=== PATIENT | female | born 1945 | race Caucasian/White ===

== ENCOUNTER 2017-11-29 09:15 | Observation (INO) | payer MEDICARE, BC ==
[2017-11-29] MEDS ORDERED: Aspirin 81 MG Tab.Chew PO ONE (09:20)
[2017-11-29] MEDS ORDERED: Pantoprazole 40 MG Vial IVPUSH ONE (09:37)
[2017-11-29] MEDS ORDERED: Ondansetron 4 MG/2 ML SDV IVPUSH ONE (09:37)
[2017-11-29] MEDS: Sodium Chloride 0.9% 10 ML Syringe FLUSH PRN ×2 (10:28→22:18)
[2017-11-29] MEDS ORDERED: Albuterol/Ipratropium 3.0-0.5 MG/3 ML Neb Soln NEB ONE (10:44)
[2017-11-29] MEDS ORDERED: rOPINIRole 2 MG Tab PO ONE (11:20)
[2017-11-29] MEDS ORDERED: Iopamidol 755 Mg/ML 100 ML Bottle IV ONE (11:32)
[2017-11-29] MEDS ORDERED: rOPINIRole 0.5 MG Tab PO ONE ×2 (11:45→23:45)
--- NOTE | 2017-11-29 12:42 | EDM.PDOC ---
ED HPI GENERAL MEDICAL PROBLEM - General Chief Complaint: Abdominal Pain Stated Complaint: CHEST PAIN Time Seen by Provider: 11/29/17 09:36 Source of Information: Reports: Patient, Family History Limitations: Reports: No Limitations - History of Present Illness INITIAL COMMENTS - FREE TEXT/NARRATIVE: 72 y.o.w.f with H/O afib, RLS and parkinson disease, came to the ed because of mid upper abd/mid lower ant. chest wall c/p. pt c/o nausea as well, last food intake was this am, her initial pulse was in the low 91s per pulse ox on 2 liters. No trauma, no Fever and chills. Pt is a poor historian. BP 131/71 pulse 103 Temp 37.1 Onset: Today Onset Date: 11/29/17 Onset Time: 05:00 Duration: Hour(s):, Intermittent Location: Reports: Abdomen (epigastric pain) Quality: Reports: Ache, Burning, Dull Severity: Mild Improves with: Reports: None Worsens with: Reports: None Context: Reports: Other (woke up this am with epigatric pain) Associated Symptoms: Reports: Shortness of Breath Epigastric Pain Score (Numeric/FACES): 1 - Related Data Allergies Allergy/AdvReac Type Severity Reaction Status Date / Time No Known Allergies Allergy Verified 11/29/17 09:34 Home Meds: Home Meds Diazepam 10 mg PO BEDTIME PRN 03/19/14 [History] Furosemide 80 mg PO BID 03/19/14 [History] Nitroglycerin [Nitrostat] 0.4 mg SL Q5M PRN 03/19/14 [History] Trimethoprim 100 mg PO DAILY 03/19/14 [History] metFORMIN [Glucophage] 1,000 mg PO BID 03/19/14 [History] Carbidopa/Levodopa [Carbidopa-Levo ER 50-200] 1 tab PO BEDTIME #30 tab.er [Rx] Calcium Citrate/Vitamin D3 [Calcium Citrate with D Tablet] 1 tab PO DAILY [History] Digoxin 0.25 mg PO MOWEFR 11/29/17 [History] Digoxin 125 mcg PO SUTUTHSA 11/29/17 [History] Ferrous Sulfate 325 mg PO WITHBREAKFAST 11/29/17 [History] Gabapentin [Neurontin] 300 mg PO TID PRN 11/29/17 [History] Insulin Glargine,Hum.Rec.Anlog [Nida Rangel] 46 units SQ BEDTIME 11/29/17 [ History] Sertraline HCl [Zoloft] 100 mg PO DAILY 11/29/17 [History] Warfarin [Coumadin] 5 mg PO DAILY 11/29/17 [History] atorvaSTATin [Lipitor] 20 mg PO BEDTIME 11/29/17 [History] rOPINIRole [Requip] 0.5 mg PO QID 11/29/17 [History] Past Medical History Cardiovascular History: Reports: Afib, High Cholesterol Respiratory History: Reports: None 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: Musculoskeletal History: Reports: Arthritis Psychiatric History: Reports: Depression Endocrine/Metabolic History: Reports: Diabetes, Type II - Past Surgical History GI Surgical History: Reports: Appendectomy, Cholecystectomy Musculoskeletal Surgical History: Reports: Knee Replacement, Shoulder Replacement Social & Family History - Tobacco Use Smoking Status *Q: Never Smoker Second Hand Smoke Exposure: No - Caffeine Use Caffeine Use: Reports: Coffee, Soda - Alcohol Use Days Per Week of Alcohol Use: 1 Number of Drinks Per Day: 0 Total Drinks Per Week: 0 - Recreational Drug Use Recreational Drug Use: No - Living Situation & Occupation Living situation: Reports: ED ROS GENERAL - Review of Systems Review Of Systems: See Below Constitutional: Reports: No Symptoms HEENT: Reports: No Symptoms Respiratory: Reports: Shortness of Breath Cardiovascular: Reports: Chest Pain Endocrine: Reports: No Symptoms GI/Abdominal: Reports: Abdominal Pain (epigastric) : Reports: No Symptoms Musculoskeletal: Reports: No Symptoms Skin: Reports: No Symptoms Neurological: Reports: No Symptoms Psychiatric: Reports: No Symptoms Hematologic/Lymphatic: Reports: No Symptoms Immunologic: Reports: No Symptoms ED EXAM, GI/ABD - Physical Exam Exam: See Below Exam Limited By: Respiratory Distress General Appearance: Alert, WD/WN, Obese Eyes: Bilateral: Normal Appearance Ears: Normal External Exam Nose: Normal Inspection Throat/Mouth: Normal Inspection, Normal Lips Head: Atraumatic, Normocephalic Neck: Normal Inspection, Supple, Non-Tender Respiratory/Chest: Respiratory Distress, Crackles, Wheezing, Prolonged Expiration Cardiovascular: Normal Peripheral Pulses, Irregularly Irregular GI/Abdominal Exam: Normal Bowel Sounds, Tender (epigastric) (Female) Exam: Deferred Rectal (Female) Exam: Deferred Back Exam: Normal Inspection, Full Range of Motion Extremities: Other (chronic leg edema) Neurological: Alert, Oriented, CN II-XII Intact, Normal Cognition, Normal Gait ( with help) Psychiatric: Normal Affect, Normal Mood Skin Exam: Warm, Dry, Intact, Normal Color, No Rash Lymphatic: No Adenopathy Course - Vital Signs Text/Narrative:: 72 y.o.w.f with H/O afib, RLS and parkinson disease, came to the ed because of mid upper abd/mid lower ant. chest wall c/p. pt c/o nausea as well, last food intake was this am, her initial pulse was in the low 91s per pulse ox on 2 liters. No trauma, no Fever and chills. Pt is a poor historian. BP 131/71 pulse 103 Temp 37.1 PE: morbid obese, WF with c/o lower ant cp amd sob. Epigastric tenderness. Labs: BNP 1414 INR 2.24 D Dimer 1048 K 3.4 Imaging: CTA Chest: Neg for PE, poss lower lob infiltrate, COPD Impression: COPD, CHF, minor infiltrate LL of lung, left pleural effusion, epigastric tenderness. A fib with NVR (on coumadine) Tx: Duoneb, Solumedrol, Zofran, Protonix Reexam: Improved 12:39 pm: Consultation: Dr. Pace, Hospitalist: Accepted the pt for admission. Plan: Admit to [facility]. Last Recorded V/S: Last Vital Signs Temp 36.8 C 11/30/17 03:22 Pulse 110 H 11/30/17 08:57 Resp 18 11/30/17 03:22 BP 139/80 11/30/17 03:22 Pulse Ox 92 L 11/30/17 07:15 - Orders/Labs/Meds Orders: Active Orders 24 hr Category Date Time Status Patient Status [ADT] Routine ADT 11/29/17 12:43 Active Intake and Output [RC] Q4H Care 11/29/17 12:46 Active Oxygen Therapy [RC] PRN Care 11/29/17 12:43 Active RT Aerosol Therapy [RC] ASDIRECTED Care 11/29/17 10:44 Active Up With Assistance [RC] ASDIRECTED Care 11/29/17 12:43 Active Vital Signs [RC] 04,08,12,16,20,00 Care 11/29/17 12:43 Active Sodium Chloride 0.9% [Saline Flush] Med 11/29/17 10:28 Active 10 ml FLUSH ASDIRECTED PRN Saline Lock Insert [OM.PC] Routine Oth 11/29/17 10:28 Ordered Resuscitation Status Routine Resus Stat 11/29/17 12:43 Ordered EKG 12 Lead [EK] Routine Ther 11/29/17 09:20 Ordered Medication Orders Acetaminophen (Tylenol) 650 mg PO Q4H PRN PRN Reason: Pain (Mild 1-3)/fever Last Admin: 11/30/17 03:40 Dose: 650 mg Albuterol/Ipratropium (Duoneb 3.0-0.5 Mg/3 Ml) 3 ml NEB QIDRT [facility] Last Admin: 11/30/17 07:02 Dose: 3 ml Admin: 11/29/17 22:07 Dose: 3 ml Admin: 11/29/17 16:01 Dose: 3 ml Atorvastatin Calcium (Lipitor) 20 mg PO BEDTIME [facility] Last Admin: 11/29/17 22:15 Dose: 20 mg Carbidopa/Levodopa (Sinemet Cr 50-200 Mg) 1 tab PO BEDTIME SHEA Diazepam (Valium.) 10 mg PO BEDTIME [facility] Last Admin: 11/29/17 22:14 Dose: 10 mg Digoxin (Lanoxin) 250 mcg PO MOWEFR [facility] Last Admin: 11/30/17 08:57 Dose: 250 mcg Digoxin (Lanoxin) 125 mcg PO SUTUTHSA [facility] Ferrous Sulfate (Ferrous Sulfate) 325 mg PO WITHBREAKFAST [facility] Last Admin: 11/30/17 08:56 Dose: 325 mg Furosemide (Lasix) 80 mg PO BIDDIURETIC [facility] Last Admin: 11/30/17 08:58 Dose: 80 mg Admin: 11/29/17 20:08 Dose: 80 mg Lactated Ringer's (Ringers, Lactated) 1,000 mls @ 80 mls/hr IV ASDIRECTED [facility] Insulin Aspart (Novolog) 0 unit SUBCUT TIDMEALS [facility] PRN Reason: Protocol Last Admin: 11/30/17 08:31 Dose: Admin: 11/29/17 17:45 Dose: 2 units Methylprednisolone Sodium Succinate (Solu-Medrol) 62.5 mg IV Q6H [facility] Last Admin: 11/30/17 09:00 Dose: 62.5 mg Admin: 11/30/17 02:16 Dose: 62.5 mg Admin: 11/29/17 22:08 Dose: 62.5 mg Metoprolol Tartrate (Lopressor) 12.5 mg PO Q6H [facility] Nitroglycerin (Nitrostat) 0.4 mg SL Q5M PRN PRN Reason: Chest Pain Toujeo *Ptom 0 each SUBCUT BEDTIME [facility] Ondansetron HCl (Zofran) 4 mg IV Q6H PRN PRN Reason: Nausea/Vomiting Ropinirole HCl (Requip) 0.5 mg PO QID [facility] Last Admin: 11/30/17 08:57 Dose: 0.5 mg Admin: 11/29/17 23:56 Dose: Not Given Senna/Docusate Sodium (Senna Plus) 1 tab PO BID PRN PRN Reason: Constipation Sertraline HCl (Zoloft) 100 mg PO DAILY [facility] Last Admin: 11/30/17 08:58 Dose: 100 mg Sodium Chloride (Saline Flush) 10 ml FLUSH ASDIRECTED PRN PRN Reason: Keep Vein Open Last Admin: 11/30/17 02:18 Dose: 10 ml Admin: 11/29/17 22:18 Dose: 10 ml Admin: 11/29/17 10:28 Dose: 10 ml Trimethoprim (Trimethoprim) 100 mg PO DAILY [facility] Last Admin: 11/30/17 08:59 Dose: 100 mg Warfarin Sodium (Coumadin Sliding Scale) 1 each PO DAILY [facility] Warfarin Sodium (Coumadin) 5 mg PO 1600 [facility] Labs: Laboratory Tests 11/29/17 11/29/17 11/29/17 Range/Units 09:50 09:50 09:50 WBC 7.4 (4.5-12.0) X10-3/uL RBC 4.23 (3.23-5.20) x10(6)uL Hgb 12.4 (11.5-15.5) g/dL Hct 37.0 (30.0-51.3) % MCV 87.6 (80-96) fL MCH 29.3 (27.7-33.6) pg MCHC 33.5 (32.2-35.4) g/dL RDW 14.9 (11.5-15.5) % Plt Count 250 (125-369) X10(3)uL MPV 8.8 (7.4-10.4) fL Neut % (Auto) 70.5 (46-82) % Lymph % (Auto) 19.6 (13-37) % Gentry % (Auto) 6.7 (4-12) % Eos % (Auto) 2 (1.0-5.0) % Baso % (Auto) 1 (0-2) % Neut # (Auto) 5.2 (1.6-8.3) # Lymph # (Auto) 1.4 (0.6-5.0) # Gentry # (Auto) 0.5 (0.0-1.3) # Eos # (Auto) 0.2 (0.0-0.8) # Baso # (Auto) 0.1 (0.0-0.2) # PT (8.7-11.1) INR (0.89-1.13) D-Dimer, Quantitative (100-400) ng/mL Sodium 141 (135-145) mmol/L Potassium 3.4 L (3.5-5.3) mmol/L Chloride 101 (100-110) mmol/L Carbon Dioxide 32 (21-32) mmol/L BUN 15 (7-18) mg/dL Creatinine 0.9 (0.55-1.02) mg/dL Est Cr Clr Drug Dosing 40.58 mL/min Estimated GFR (MDRD) > 60 (>60) BUN/Creatinine Ratio 16.7 (9-20) Glucose 213 H (80-116) mg/dL Hemoglobin A1c (4.5-6.2) % Calcium 8.1 L (8.6-10.2) mg/dL Total Bilirubin (0.1-1.3) mg/dL Direct Bilirubin (0.10-0.20) mg/dL AST (5-25) IU/L ALT (12-36) U/L Alkaline Phosphatase (56-112) IU/L Troponin I < 0.017 L (<0.017-0.056) ng/mL NT-Pro-B Natriuret Pep (<=125) pg/mL Total Protein (6.0-8.0) g/dL Albumin (3.2-4.6) g/dL Amylase (25-115) U/L 11/29/17 11/29/17 11/29/17 Range/Units 09:50 09:50 09:50 WBC (4.5-12.0) X10-3/uL RBC (3.23-5.20) x10(6)uL Hgb (11.5-15.5) g/dL Hct (30.0-51.3) % MCV (80-96) fL MCH (27.7-33.6) pg MCHC (32.2-35.4) g/dL RDW (11.5-15.5) % Plt Count (125-369) X10(3)uL MPV (7.4-10.4) fL Neut % (Auto) (46-82) % Lymph % (Auto) (13-37) % Gentry % (Auto) (4-12) % Eos % (Auto) (1.0-5.0) % Baso % (Auto) (0-2) % Neut # (Auto) (1.6-8.3) # Lymph # (Auto) (0.6-5.0) # Gentry # (Auto) (0.0-1.3) # Eos # (Auto) (0.0-0.8) # Baso # (Auto) (0.0-0.2) # PT 21.6 H (8.7-11.1) INR 2.11 H (0.89-1.13) D-Dimer, Quantitative 1050 H (100-400) ng/mL Sodium (135-145) mmol/L Potassium (3.5-5.3) mmol/L Chloride (100-110) mmol/L Carbon Dioxide (21-32) mmol/L BUN (7-18) mg/dL Creatinine (0.55-1.02) mg/dL Est Cr Clr Drug Dosing mL/min Estimated GFR (MDRD) (>60) BUN/Creatinine Ratio (9-20) Glucose (80-116) mg/dL Hemoglobin A1c (4.5-6.2) % Calcium (8.6-10.2) mg/dL Total Bilirubin 2.7 H (0.1-1.3) mg/dL Direct Bilirubin 0.47 H (0.10-0.20) mg/dL AST 49 H (5-25) IU/L ALT 24 (12-36) U/L Alkaline Phosphatase 121 H (56-112) IU/L Troponin I (<0.017-0.056) ng/mL NT-Pro-B Natriuret Pep (<=125) pg/mL Total Protein 6.5 (6.0-8.0) g/dL Albumin 3.2 (3.2-4.6) g/dL Amylase 42 (25-115) U/L 11/29/17 11/29/17 Range/Units 09:50 09:50 WBC (4.5-12.0) X10-3/uL RBC (3.23-5.20) x10(6)uL Hgb (11.5-15.5) g/dL Hct (30.0-51.3) % MCV (80-96) fL MCH (27.7-33.6) pg MCHC (32.2-35.4) g/dL RDW (11.5-15.5) % Plt Count (125-369) X10(3)uL MPV (7.4-10.4) fL Neut % (Auto) (46-82) % Lymph % (Auto) (13-37) % Gentry % (Auto) (4-12) % Eos % (Auto) (1.0-5.0) % Baso % (Auto) (0-2) % Neut # (Auto) (1.6-8.3) # Lymph # (Auto) (0.6-5.0) # Gentry # (Auto) (0.0-1.3) # Eos # (Auto) (0.0-0.8) # Baso # (Auto) (0.0-0.2) # PT (8.7-11.1) INR (0.89-1.13) D-Dimer, Quantitative (100-400) ng/mL Sodium (135-145) mmol/L Potassium (3.5-5.3) mmol/L Chloride (100-110) mmol/L Carbon Dioxide (21-32) mmol/L BUN (7-18) mg/dL Creatinine (0.55-1.02) mg/dL Est Cr Clr Drug Dosing mL/min Estimated GFR (MDRD) (>60) BUN/Creatinine Ratio (9-20) Glucose (80-116) mg/dL Hemoglobin A1c 7.7 H (4.5-6.2) % Calcium (8.6-10.2) mg/dL Total Bilirubin (0.1-1.3) mg/dL Direct Bilirubin (0.10-0.20) mg/dL AST (5-25) IU/L ALT (12-36) U/L Alkaline Phosphatase (56-112) IU/L Troponin I (<0.017-0.056) ng/mL NT-Pro-B Natriuret Pep 1414 H* (<=125) pg/mL Total Protein (6.0-8.0) g/dL Albumin (3.2-4.6) g/dL Amylase (25-115) U/L Meds: Medications Generic Name Dose Route Start Last Admin Trade Name Freq PRN Reason Stop Dose Admin Acetaminophen 650 mg 11/29/17 13:46 11/30/17 03:40 Tylenol PO 650 mg Q4H PRN Administration Pain (Mild 1-3)/fever Albuterol/Ipratropium 3 ml 11/29/17 16:00 11/30/17 07:02 Duoneb 3.0-0.5 Mg/3 Ml NEB 3 ml QIDRT SHEA Administration Atorvastatin Calcium 20 mg 11/29/17 21:00 11/29/17 22:15 Lipitor PO 20 mg BEDTIME SHEA Administration Carbidopa/Levodopa 1 tab 11/30/17 21:00 Sinemet Cr 50-200 Mg PO BEDTIME [facility] Diazepam 10 mg 11/29/17 21:00 11/29/17 22:14 Valium. PO 10 mg BEDTIME SHE[facility] Administration Digoxin 250 mcg 11/30/17 09:00 11/30/17 08:57 Lanoxin PO 250 mcg MOWEFR SHEA Administration Digoxin 125 mcg 12/01/17 09:00 Lanoxin PO SUTUTHSA [facility] Ferrous Sulfate 325 mg 11/30/17 08:00 11/30/17 08:56 Ferrous Sulfate PO 325 mg WITHBREAKFAST [facility] Administration Furosemide 80 mg 11/29/17 19:30 11/30/17 08:58 Lasix PO 80 mg BIDDIURETIC [facility] Administration Lactated Ringer's 1,000 mls @ 80 mls/hr 11/29/17 14:00 Ringers, Lactated IV ASDIRECTED [facility] Insulin Aspart 0 unit 11/29/17 18:00 11/30/17 08:31 Novolog SUBCUT Not Given TIDMEALS [facility] Protocol Methylprednisolone Sodium Succinate 62.5 mg 11/29/17 21:00 11/30/17 09:00 Solu-Medrol IV 62.5 mg Q6H [facility] Administration Metoprolol Tartrate 12.5 mg 11/30/17 09:15 Lopressor PO Q6H [facility] Nitroglycerin 0.4 mg 11/29/17 13:46 Nitrostat SL Q5M PRN Chest Pain Toujeo *Ptom 0 each 11/29/17 21:00 SUBCUT BEDTIME [facility] Ondansetron HCl 4 mg 11/29/17 13:46 Zofran IV Q6H PRN Nausea/Vomiting Ropinirole HCl 0.5 mg 11/29/17 23:20 11/30/17 08:57 Requip PO 0.5 mg QID [facility] Administration Senna/Docusate Sodium 1 tab 11/29/17 13:46 Senna Plus PO BID PRN Constipation Sertraline HCl 100 mg 11/30/17 09:00 11/30/17 08:58 Zoloft PO 100 mg DAILY [facility] Administration Sodium Chloride 10 ml 11/29/17 10:28 11/30/17 02:18 Saline Flush FLUSH 10 ml ASDIRECTED PRN Administration Keep Vein Open Trimethoprim 100 mg 11/30/17 09:00 11/30/17 08:59 Trimethoprim PO 100 mg DAILY [facility] Administration Warfarin Sodium 1 each 11/30/17 09:00 Coumadin Sliding Scale PO DAILY [facility] Warfarin Sodium 5 mg 11/29/17 16:00 Coumadin PO 1600 [facility] Discontinued Medications Generic Name Dose Route Start Last Admin Trade Name Freq PRN Reason Stop Dose Admin Albuterol/Ipratropium 3 ml 11/29/17 10:44 11/29/17 10:51 Duoneb 3.0-0.5 Mg/3 Ml NEB 11/29/17 10:45 3 ml ONETIME ONE Administration Aspirin 324 mg 11/29/17 09:20 11/29/17 09:33 Aspirin PO 11/29/17 09:21 324 mg ONETIME ONE Administration Carbidopa/Levodopa 1 tab 11/29/17 21:00 11/30/17 00:25 Sinemet Cr 50-200 Mg PO Not Given BEDTIME [facility] Carbidopa/Levodopa 1 tab 11/29/17 17:00 Sinemet 25-250 Mg PO QID SHEA Carbidopa/Levodopa 2 tab 11/30/17 21:00 Sinemet 25-250 Mg PO BEDTIME SHEA Carbidopa/Levodopa 1 tab 11/29/17 22:30 11/29/17 22:23 Sinemet Cr 50-200 Mg PO 11/29/17 22:31 1 tab ONETIME ONE Administration Diazepam 5 mg 11/29/17 14:04 Valium. PO BEDTIME PRN Insomnia Furosemide mg 11/29/17 14:15 Lasix PO DAILY [facility] Gabapentin 300 mg 11/29/17 21:00 Neurontin PO TID [facility] Insulin Aspart 20 unit 11/30/17 08:07 11/30/17 08:30 Novolog SUBCUT 11/30/17 08:08 20 units NOW STA Administration Iopamidol 100 ml 11/29/17 11:32 11/29/17 11:53 Isovue-370 (76%) IV 11/29/17 11:33 100 ml . DIRECTED ONE Administration Metformin HCl mg 11/29/17 17:00 Glucophage PO QID [facility] Methylprednisolone Sodium Succinate 125 mg 11/29/17 12:49 11/29/17 12:56 Solu-Medrol IVPUSH 11/29/17 12:50 125 mg ONETIME ONE Administration Non-Formulary Medication 46 units 11/29/17 21:00 Insulin Glargine,Hum.Rec.Anlog [Nida Rangel] SQ BEDTIME [facility] Ondansetron HCl 8 mg 11/29/17 09:37 11/29/17 10:24 Zofran IVPUSH 11/29/17 09:38 8 mg ONETIME ONE Administration Pantoprazole Sodium 40 mg 11/29/17 09:37 11/29/17 10:24 Protonix Iv IVPUSH 11/29/17 09:38 40 mg ONETIME ONE Administration Ropinirole HCl 0.5 mg 11/29/17 11:45 11/29/17 11:34 Requip PO 11/29/17 11:46 0.5 mg ONETIME ONE Administration Ropinirole HCl 0.5 mg 11/29/17 17:00 Requip PO QID [facility] Ropinirole HCl 0.5 mg 11/29/17 23:45 11/29/17 23:52 Requip PO 11/29/17 23:46 0.5 mg ONETIME ONE Administration Ropinirole HCl 0.5 mg 11/29/17 23:45 11/29/17 23:54 Requip PO 11/29/17 23:46 Not Given ONETIME ONE Sertraline HCl 50 mg 11/30/17 09:00 Zoloft PO DAILY [facility] Zolpidem Tartrate 5 mg 11/29/17 13:46 Ambien PO BEDTIME PRN Sleep Departure - Departure Time of Disposition: 13:00 Disposition: Refer to Observation Condition: Fair Clinical Impression: COPD (chronic obstructive pulmonary disease) Qualifiers: COPD type: COPD with acute exacerbation Qualified Code(s): J44.1 - Chronic obstructive pulmonary disease with (acute) exacerbation - Discharge Information - My Orders Last 24 Hours: My Active Orders 11/29/17 09:20 EKG 12 Lead [EK] Routine 11/29/17 10:28 Sodium Chloride 0.9% [Saline Flush] 10 ml FLUSH ASDIRECTED PRN Saline Lock Insert [OM.PC] Routine 11/29/17 10:44 RT Aerosol Therapy [RC] ASDIRECTED 11/29/17 12:43 Patient Status [ADT] Routine Oxygen Therapy [RC] PRN Up With Assistance [RC] ASDIRECTED Vital Signs [RC] 04,08,12,16,20,00 Resuscitation Status Routine 11/29/17 12:46 Intake and Output [RC] Q4H - Assessment/Plan Last 24 Hours: My Active Orders 11/29/17 09:20 EKG 12 Lead [EK] Routine 11/29/17 10:28 Sodium Chloride 0.9% [Saline Flush] 10 ml FLUSH ASDIRECTED PRN Saline Lock Insert [OM.PC] Routine 11/29/17 10:44 RT Aerosol Therapy [RC] ASDIRECTED 11/29/17 12:43 Patient Status [ADT] Routine Oxygen Therapy [RC] PRN Up With Assistance [RC] ASDIRECTED Vital Signs [RC] 04,08,12,16,20,00 Resuscitation Status Routine 11/29/17 12:46 Intake and Output [RC] Q4H
[2017-11-29] MEDS ORDERED: methylPREDNISolone Sodium Succinate 125 MG/2 ML SDV IVPUSH ONE (12:49)
--- NOTE | 2017-11-29 13:26 | CT ---
INDICATION: Short of breath, elevated D-dimer, question PE in a patient with mid chest pain. COMPUTERIZED TOMOGRAPHY ANGIOGRAPHY OF THE CHEST FOR PULMONARY ARTERIES: Spiral 1.25-mm axial sections were obtained through the chest with sagittal and coronal reconstructions utilizing 100 mL Isovue-370 at 2.5 mL per second, 2017, and compared with 03/19/2014 examination. Total Exam DLP = 959.90 mGy-cm. Very minimal atelectasis or infiltrate could be present at the middle lobe and left lower lobe with a small to moderate sized right pleural effusion noted. No gross consolidating pneumonia is seen in the right lower lobe, however, there are some patchy infiltrates, which may represent minimal pneumonia with pleuritis. This should be correlated clinically. The heart is enlarged. The possibility of minimal or early CHF is difficult to exclude. Some minimal pericardial thickening is noted, which could represent pericardial fluid and/or pericarditis of mild degree. There is suggestion of lobar emphysematous changes additionally. No gross abnormality of the upper abdomen included on the study was noted. The gallbladder is absent, with clips at the cystic duct, compatible with cholecystectomy. No evidence of pulmonary emboli could be identified. IMPRESSION: 1. No evidence of PE. 2. 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 3. ASHD with cardiomegaly. Cannot exclude a minimal or early CHF. 4. Minimal patchy pneumonia and pleuritis right lower lobe. Question minimal fibrosis or very minimal patchy pneumonia in the middle lobe and left lower lobe. 5. Post cholecystectomy. Report was called to Dr. Billy at 1235 hours, 11/29/2017. [facility]
[2017-11-29] MEDS ORDERED: Ondansetron 4 MG/2 ML SDV IV PRN (13:46)
[2017-11-29] MEDS ORDERED: Nitroglycerin 0.4 MG Tab.SL *PTOM SL PRN (13:46)
[2017-11-29] MEDS ORDERED: Acetaminophen 325 MG Tab PO PRN (13:46)
[2017-11-29] MEDS ORDERED: Zolpidem 5 MG Tab PO PRN (13:46)
[2017-11-29] MEDS ORDERED: Lactated Ringers 1,000 ML IV SCH (14:00)
[2017-11-29] MEDS ORDERED: Diazepam 5 MG Tab PO PRN (14:04)
--- NOTE | 2017-11-29 14:12 | PCM.HP ---
H&P History of Present Illness - General Date of Service: 11/29/17 Admit Problem/Dx: Admission Diagnosis/Problem Admission Diagnosis/Problem CHF, Congestive heart failure - History of Present Illness Initial Comments - Free Text/Narative: 72 -year-old female with afib, CHF, COPD and obstructive sleep apnea. came to the ed because of sudden onset epigastric, upper abd, and mid lower ant. chest wall pain. Described more as sharp with cough or inspiration. Denied pressure or feeling of impending doom, denied palpitations or syncope. Denied having had this in the past. She has not tried anything to relieve it. She had no trauma, known ill contacts or travel in the last 30 days. No hospitalizations in the last 90 days.. She has no headache neck shoulder or jaw pain. She is nondiaphoretic has not noted any fevers or chills, admitted to nausea without vomiting. last food intake was this am. Pt is a poor historian however by her daughter dose come in as being interviewed to bring in her CPAP. BP 131/71 pulse 103 Temp 37.1. Sats in the ER load in 90s. She did admit to some wheezing she's noted over the last few days. Has asthma. She has multiple comorbidities and is on numerous medications some of which have been changed in the last week per her PCP. Chronic anticoagulation with warfarin following INR clinic at [facility]. Epigastric Pain Score (Numeric/FACES): 1 - Related Data Allergies/Adverse Reactions: Allergies Allergy/AdvReac Type Severity Reaction Status Date / Time No Known Allergies Allergy Verified 11/29/17 09:34 Home Medications: Home Meds Diazepam 10 mg PO BEDTIME PRN 03/19/14 [History] Furosemide 80 mg PO BID 03/19/14 [History] Nitroglycerin [Nitrostat] 0.4 mg SL Q5M PRN 03/19/14 [History] Trimethoprim 100 mg PO DAILY 03/19/14 [History] metFORMIN [Glucophage] 1,000 mg PO BID 03/19/14 [History] Carbidopa/Levodopa [Carbidopa-Levo ER 50-200] 1 tab PO BEDTIME #30 tab.er [Rx] Calcium Citrate/Vitamin D3 [Calcium Citrate with D Tablet] 1 tab PO DAILY [History] Digoxin 0.25 mg PO MOWEFR 11/29/17 [History] Digoxin 125 mcg PO SUTUTHSA 11/29/17 [History] Ferrous Sulfate 325 mg PO WITHBREAKFAST 11/29/17 [History] Gabapentin [Neurontin] 300 mg PO TID PRN 11/29/17 [History] Insulin Glargine,Hum.Rec.Anlog [Touzaneo Solostar] 46 units SQ BEDTIME 11/29/17 [ History] Sertraline HCl [Zoloft] 100 mg PO DAILY 11/29/17 [History] Warfarin [Coumadin] 5 mg PO DAILY 11/29/17 [History] atorvaSTATin [Lipitor] 20 mg PO BEDTIME 11/29/17 [History] rOPINIRole [Requip] 0.5 mg PO QID 11/29/17 [History] Past Medical History Cardiovascular History: Reports: Afib, High Cholesterol Respiratory History: Reports: None [employer] History: Reports: Musculoskeletal History: Reports: Arthritis Neurological History: Reports: Concussion Psychiatric History: Reports: Depression Endocrine/Metabolic History: Reports: Diabetes, Type II - Infectious Disease History Infectious Disease History: Reports: Chicken Pox, Measles, Mumps - Past Surgical History GI Surgical History: Reports: Appendectomy, Cholecystectomy Musculoskeletal Surgical History: Reports: Knee Replacement, Shoulder Replacement Social & Family History - Family History Family Medical History: Noncontributory - Tobacco Use Smoking Status *Q: Never Smoker Second Hand Smoke Exposure: No - Caffeine Use Caffeine Use: Reports: Coffee, Soda Other Caffeine Use: 1-2 per day - Alcohol Use Days Per Week of Alcohol Use: 1 Number of Drinks Per Day: 0 Total Drinks Per Week: 0 - Recreational Drug Use Recreational Drug Use: No - Living Situation & Occupation Living situation: Reports: H&P Review of Systems - Review of Systems: Review Of Systems: ROS reveals no pertinent complaints other than HPI. Exam - Exam Exam: See Below - Vital Signs Vital Signs: Last Vital Signs Temp 97.6 F 11/29/17 13:15 Pulse 129 H 11/29/17 13:15 Resp 16 11/29/17 13:15 BP 121/81 11/29/17 13:15 Pulse Ox 91 L RA 11/29/17 13:15 Weight: 114.078 kg - Exam Quality Assessment: Supplemental Oxygen General: Alert, Oriented, Cooperative, Mild Distress HEENT: Mucosa Moist & [place] Neck: Supple, Trachea Midline, JVD Lungs: Decreased Breath Sounds (Bilateral), Rales (Fine bilateral lower lobe), Wheezing (Anterior bilateral expiratory mild) Cardiovascular: Irregular Rhythm, Tachycardia, Systolic Murmur GI/Abdominal Exam: Normal Bowel Sounds, Soft, Non-Tender Extremities: Other (3+ pitting edema up to just above the knee. Symmetric. No erythema warmth or tenderness. Capillary refill 3 seconds. Extremities cool.) Skin: No: Rash, Petechia, Ecchymosis Neurological: Strength Equal Bilateral, Sensation Intact. No: Focal Deficit Psychiatric: Normal Affect, Anxious, Depressed - Patient Data Lab Results Last 24 hrs: Laboratory Tests 11/29/17 11/29/17 11/29/17 Range/Units 09:50 09:50 09:50 WBC 7.4 (4.5-12.0) X10-3/uL RBC 4.23 (3.23-5.20) x10(6)uL Hgb 12.4 (11.5-15.5) g/dL Hct 37.0 (30.0-51.3) % MCV 87.6 (80-96) fL MCH 29.3 (27.7-33.6) pg MCHC 33.5 (32.2-35.4) g/dL RDW 14.9 (11.5-15.5) % Plt Count 250 (125-369) X10(3)uL MPV 8.8 (7.4-10.4) fL Neut % (Auto) 70.5 (46-82) % Lymph % (Auto) 19.6 (13-37) % [place] % (Auto) 6.7 (4-12) % Eos % (Auto) 2 (1.0-5.0) % Baso % (Auto) 1 (0-2) % Neut # (Auto) 5.2 (1.6-8.3) # Lymph # (Auto) 1.4 (0.6-5.0) # [place] # (Auto) 0.5 (0.0-1.3) # Eos # (Auto) 0.2 (0.0-0.8) # Baso # (Auto) 0.1 (0.0-0.2) # Add Manual Diff Neutrophils % (Manual) (46-82) % Lymphocytes % (Manual) (13-37) % Monocytes % (Manual) (4-12) % PT (8.7-11.1) INR (0.89-1.13) D-Dimer, Quantitative (100-400) ng/mL Sodium 141 (135-145) mmol/L Potassium 3.4 L (3.5-5.3) mmol/L Chloride 101 (100-110) mmol/L Carbon Dioxide 32 (21-32) mmol/L BUN 15 (7-18) mg/dL Creatinine 0.9 (0.55-1.02) mg/dL Est Cr Clr Drug Dosing 40.58 mL/min Estimated GFR (MDRD) > 60 (>60) BUN/Creatinine Ratio 16.7 (9-20) Glucose 213 H (80-116) mg/dL POC Glucose (80-116) mg/dL Hemoglobin A1c (4.5-6.2) % Calcium 8.1 L (8.6-10.2) mg/dL Total Bilirubin (0.1-1.3) mg/dL Direct Bilirubin (0.10-0.20) mg/dL AST (5-25) IU/L ALT (12-36) U/L Alkaline Phosphatase (56-112) IU/L Troponin I < 0.017 L (<0.017-0.056) ng/mL NT-Pro-B Natriuret Pep (<=125) pg/mL Total Protein (6.0-8.0) g/dL Albumin (3.2-4.6) g/dL Amylase (25-115) U/L Digoxin (0.9-2.0) ng/mL 11/29/17 11/29/17 11/29/17 Range/Units 09:50 09:50 09:50 WBC (4.5-12.0) X10-3/uL RBC (3.23-5.20) x10(6)uL Hgb (11.5-15.5) g/dL Hct (30.0-51.3) % MCV (80-96) fL MCH (27.7-33.6) pg MCHC (32.2-35.4) g/dL RDW (11.5-15.5) % Plt Count (125-369) X10(3)uL MPV (7.4-10.4) fL Neut % (Auto) (46-82) % Lymph % (Auto) (13-37) % [place] % (Auto) (4-12) % Eos % (Auto) (1.0-5.0) % Baso % (Auto) (0-2) % Neut # (Auto) (1.6-8.3) # Lymph # (Auto) (0.6-5.0) # [place] # (Auto) (0.0-1.3) # Eos # (Auto) (0.0-0.8) # Baso # (Auto) (0.0-0.2) # Add Manual Diff Neutrophils % (Manual) (46-82) % Lymphocytes % (Manual) (13-37) % Monocytes % (Manual) (4-12) % PT 21.6 H (8.7-11.1) INR 2.11 H (0.89-1.13) D-Dimer, Quantitative 1050 H (100-400) ng/mL Sodium (135-145) mmol/L Potassium (3.5-5.3) mmol/L Chloride (100-110) mmol/L Carbon Dioxide (21-32) mmol/L BUN (7-18) mg/dL Creatinine (0.55-1.02) mg/dL Est Cr Clr Drug Dosing mL/min Estimated GFR (MDRD) (>60) BUN/Creatinine Ratio (9-20) Glucose (80-116) mg/dL POC Glucose (80-116) mg/dL Hemoglobin A1c (4.5-6.2) % Calcium (8.6-10.2) mg/dL Total Bilirubin 2.7 H (0.1-1.3) mg/dL Direct Bilirubin 0.47 H (0.10-0.20) mg/dL AST 49 H (5-25) IU/L ALT 24 (12-36) U/L Alkaline Phosphatase 121 H (56-112) IU/L Troponin I (<0.017-0.056) ng/mL NT-Pro-B Natriuret Pep (<=125) pg/mL Total Protein 6.5 (6.0-8.0) g/dL Albumin 3.2 (3.2-4.6) g/dL Amylase 42 (25-115) U/L Digoxin (0.9-2.0) ng/mL 11/29/17 11/29/17 11/29/17 Range/Units 09:50 09:50 14:25 WBC (4.5-12.0) X10-3/uL RBC (3.23-5.20) x10(6)uL Hgb (11.5-15.5) g/dL Hct (30.0-51.3) % MCV (80-96) fL MCH (27.7-33.6) pg MCHC (32.2-35.4) g/dL RDW (11.5-15.5) % Plt Count (125-369) X10(3)uL MPV (7.4-10.4) fL Neut % (Auto) (46-82) % Lymph % (Auto) (13-37) % [place] % (Auto) (4-12) % Eos % (Auto) (1.0-5.0) % Baso % (Auto) (0-2) % Neut # (Auto) (1.6-8.3) # Lymph # (Auto) (0.6-5.0) # [place] # (Auto) (0.0-1.3) # Eos # (Auto) (0.0-0.8) # Baso # (Auto) (0.0-0.2) # Add Manual Diff Neutrophils % (Manual) (46-82) % Lymphocytes % (Manual) (13-37) % Monocytes % (Manual) (4-12) % PT (8.7-11.1) INR (0.89-1.13) D-Dimer, Quantitative (100-400) ng/mL Sodium (135-145) mmol/L Potassium (3.5-5.3) mmol/L Chloride (100-110) mmol/L Carbon Dioxide (21-32) mmol/L BUN (7-18) mg/dL Creatinine (0.55-1.02) mg/dL Est Cr Clr Drug Dosing mL/min Estimated GFR (MDRD) (>60) BUN/Creatinine Ratio (9-20) Glucose (80-116) mg/dL POC Glucose (80-116) mg/dL Hemoglobin A1c 7.7 H (4.5-6.2) % Calcium (8.6-10.2) mg/dL Total Bilirubin (0.1-1.3) mg/dL Direct Bilirubin (0.10-0.20) mg/dL AST (5-25) IU/L ALT (12-36) U/L Alkaline Phosphatase (56-112) IU/L Troponin I < 0.017 L (<0.017-0.056) ng/mL NT-Pro-B Natriuret Pep 1414 H* (<=125) pg/mL Total Protein (6.0-8.0) g/dL Albumin (3.2-4.6) g/dL Amylase (25-115) U/L Digoxin 0.7 L (0.9-2.0) ng/mL Result Diagrams: 11/30/17 06:20 11/30/17 06:20 Imaging Impressions Last 24 hrs: CT angiogram of the chest was negative for PE, no predominant focal consolidations. No large pleural effusions. *Q Meaningful Use (ADM) - VTE *Q VTE Criteria *Q: - Stroke *Q Stroke Criteria *Q: - AMI *Q AMI Criteria *Q: - Problem List (1) COPD with exacerbation SNOMED Code(s): 464421736845148 ICD Code: J44.1 - CHRONIC OBSTRUCTIVE PULMONARY DISEASE W (ACUTE) EXACERBATION Status: Acute Current Visit: Yes (2) Acute exacerbation of CHF (congestive heart failure) SNOMED Code(s): 11760428 ICD Code: I50.9 - HEART FAILURE, UNSPECIFIED Status: Acute Current Visit : Yes (3) Asthma SNOMED Code(s): 851221652 ICD Code: J45.909 - UNSPECIFIED ASTHMA, UNCOMPLICATED Status: Chronic Priority: Medium Current Visit: Yes Problem Details: (4) Palliative care patient SNOMED Code(s): 417778819 ICD Code: Z51.5 - ENCOUNTER FOR PALLIATIVE CARE Status: Acute Current Visit: Yes (5) Afib, Atrial fibrillation SNOMED Code(s): 04127964 ICD Code: I48.91 - UNSPECIFIED ATRIAL FIBRILLATION Status: Chronic Priority: High Current Visit: Yes Problem Details: (6) Diabetes mellitus type 2 in obese SNOMED Code(s): 02339246 ICD Code: E11.9 - TYPE 2 DIABETES MELLITUS WITHOUT COMPLICATIONS; E66.9 - OBESITY, UNSPECIFIED Status: Chronic Priority: High Current Visit: Yes Problem Details: (7) Diabetic autonomic neuropathy SNOMED Code(s): 57181696 ICD Code: E11.43 - TYPE 2 DIABETES W DIABETIC AUTONOMIC (POLY)NEUROPATHY Status: Chronic Priority: Low Current Visit: Yes Problem Details: continue home meds. (8) Hyperlipidemia SNOMED Code(s): 43753016 ICD Code: E78.5 - HYPERLIPIDEMIA, UNSPECIFIED Status: Chronic Priority: Medium Current Visit: No Problem Details: (9) Peripheral edema SNOMED Code(s): 785768890 ICD Code: R60.9 - EDEMA, UNSPECIFIED Status: Chronic Priority: Medium Current Visit: Yes Problem Details: (10) Restless legs SNOMED Code(s): 26325554 ICD Code: G25.81 - RESTLESS LEGS SYNDROME Status: Chronic Priority: Low Current Visit: No Problem Details: continue home meds. (11) Obstructive sleep apnea syndrome SNOMED Code(s): 05606536 ICD Code: G47.33 - OBSTRUCTIVE SLEEP APNEA (ADULT) (PEDIATRIC) Status: Chronic Priority: High Current Visit: Yes Problem Details: CPAP with and will use. (12) Arthritis SNOMED Code(s): 5246237 ICD Code: M19.90 - UNSPECIFIED OSTEOARTHRITIS, UNSPECIFIED SITE Status: Chronic Priority: Low Current Visit: No Problem Details: Problem List Initiated/Reviewed/Updated: Yes Orders Last 24hrs: Active Orders 24 hr Category Date Time Status Ambulate [RC] QID Care 11/29/17 13:46 Ordered Blood Glucose Check, Bedside [RC] QIDACANDBED Care 11/29/17 13:46 Ordered Cardiac Education [RC] Click to Edit Care 11/29/17 13:46 Ordered Communication Order [RC] ASDIRECTED Care 11/29/17 13:46 Ordered Diabetes Education [RC] Click to Edit Care 11/29/17 13:46 Ordered Height and Weight [RC] DAILY Care 11/29/17 13:46 Ordered Notify Provider Vital Signs [RC] ASDIRECTED Care 11/29/17 13:49 Ordered Notify Provider [RC] PRN Care 11/29/17 13:46 Ordered Notify Provider [RC] PRN Care 11/29/17 14:01 Ordered RT Incentive Spirometry [RC] Q4HR Care 11/29/17 13:46 Ordered BASIC METABOLIC PANEL,BMP [CHEM] AM Lab 11/30/17 05:11 Ordered CBC WITH AUTO DIFF [HEME] AM Lab 11/30/17 05:11 Ordered DIGOXIN [CHEM] Routine Lab 11/29/17 14:07 Ordered GLYCOSYLATED HEMOGLOBIN,HGBA1C [CHEM] Routine Lab 11/29/17 13:46 Ordered INR,PT,PROTHROMBIN TIME [COAG] DAILY Lab 11/30/17 06:00 Ordered INR,PT,PROTHROMBIN TIME [COAG] DAILY Lab 12/01/17 06:00 Ordered INR,PT,PROTHROMBIN TIME [COAG] DAILY Lab 12/02/17 06:00 Ordered TROPONIN I [CHEM] Q4H Lab 11/29/17 13:46 Ordered TROPONIN I [CHEM] Q4H Lab 11/29/17 17:46 Ordered Acetaminophen [Tylenol] Med 11/29/17 13:46 Ordered 650 mg PO Q4H PRN Albuterol/Ipratropium [DuoNeb 3.0-0.5 MG/3 ML] Med 11/29/17 16:00 Ordered 3 ml NEB QIDRT Carbidopa/Levodopa [Sinemet 25-250 mg] Med 11/29/17 17:00 Ordered 1 tab PO QID Carbidopa/Levodopa [Sinemet Cr 50-200 mg] Med 11/29/17 21:00 Ordered 1 tab PO BEDTIME Diazepam [Valium] Med 11/29/17 14:04 Ordered 5 mg PO BEDTIME PRN Digoxin [Lanoxin] Med 11/29/17 14:15 Ordered 125 mcg PO SUTUTHSA Digoxin [Lanoxin] Med 11/30/17 14:04 Ordered 250 mcg PO MOWEFR Docusate Sodium/Sennosides [Senna Plus] Med 11/29/17 13:46 Ordered 1 tab PO BID PRN Ferrous Sulfate Med 11/30/17 08:00 Ordered 325 mg PO WITHBREAKFAST Furosemide [Lasix] Med 11/29/17 14:15 Ordered 1 tab PO DAILY Gabapentin [Neurontin] Med 11/29/17 21:00 Ordered 300 mg PO TID Insulin Aspart [NovoLOG] Med 11/29/17 18:00 Ordered See Protocol SUBCUT TIDMEALS Insulin Glargine,Hum.Rec.Anlog [Toumarita Solaida] Med 11/29/17 21:00 Ordered 46 units SQ BEDTIME Lactated Ringers [Ringers, Lactated] 1,000 ml Med 11/29/17 14:00 Ordered IV ASDIRECTED Multivitamin [Multivitamins] Med 11/30/17 09:00 Ordered 1 each PO DAILY Nitroglycerin [Nitrostat] Med 11/29/17 13:46 Ordered 0.4 mg SL Q5M PRN Ondansetron [Zofran] Med 11/29/17 13:46 Ordered 4 mg IV Q6H PRN Sertraline [Zoloft] Med 11/30/17 09:00 Ordered 50 mg PO DAILY Trimethoprim Med 11/30/17 09:00 Ordered 1 tab PO DAILY Zolpidem [Ambien] Med 11/29/17 13:46 Stop Req 5 mg PO BEDTIME PRN atorvaSTATin [Lipitor] Med 11/29/17 21:00 Ordered 20 mg PO BEDTIME methylPREDNISolone Sod Succ [Solu-MEDROL] Med 11/29/17 21:00 Ordered 62.5 mg IV Q6H rOPINIRole [Requip] Med 11/29/17 17:00 Ordered 0.5 mg PO QID Medication Orders Acetaminophen (Tylenol) 650 mg PO Q4H PRN PRN Reason: Pain (Mild 1-3)/fever Albuterol/Ipratropium (Duoneb 3.0-0.5 Mg/3 Ml) 3 ml NEB QIDRT [facility] Atorvastatin Calcium (Lipitor) 20 mg PO BEDTIME [facility] Carbidopa/Levodopa (Sinemet Cr 50-200 Mg) 1 tab PO BEDTIME [facility] Carbidopa/Levodopa (Sinemet 25-250 Mg) 1 tab PO QID [facility] Diazepam (Valium.) 5 mg PO BEDTIME PRN PRN Reason: Insomnia Digoxin (Lanoxin) 250 mcg PO MOWEFR [facility] Digoxin (Lanoxin) 125 mcg PO SUTUTHSA [facility] Ferrous Sulfate (Ferrous Sulfate) 325 mg PO WITHBREAKFAST [facility] Furosemide (Lasix) 80 mg PO DAILY [facility] Gabapentin (Neurontin) 300 mg PO TID [facility] Lactated Ringer's (Ringers, Lactated) 1,000 mls @ 80 mls/hr IV ASDIRECTED [facility] Insulin Aspart (Novolog) 0 unit SUBCUT TIDMEALS [facility] PRN Reason: Protocol Methylprednisolone Sodium Succinate (Solu-Medrol) 62.5 mg IV Q6H [facility] Nitroglycerin (Nitrostat) 0.4 mg SL Q5M PRN PRN Reason: Chest Pain Non-Formulary Medication (Insulin Glargine,Hum.Rec.Anlog [Nida Rangel]) 20 units SQ BEDTIME [facility] Non-Formulary Medication (Multivitamin [Multivitamins]) 1 each PO DAILY [facility] Ondansetron HCl (Zofran) 4 mg IV Q6H PRN PRN Reason: Nausea/Vomiting Ropinirole HCl (Requip) 0.5 mg PO QID [facility] Senna/Docusate Sodium (Senna Plus) 1 tab PO BID PRN PRN Reason: Constipation Sertraline HCl (Zoloft) 50 mg PO DAILY [facility] Sodium Chloride (Saline Flush) 10 ml FLUSH ASDIRECTED PRN PRN Reason: Keep Vein Open Last Admin: 11/29/17 10:28 Dose: 10 ml Trimethoprim (Trimethoprim) mg PO DAILY [facility] Assessment/Plan Comment:: We'll admit for COPD exacerbation, CHF exacerbation and respiratory distress. Will get RT for DuoNeb and incentive spirometry. Methylprednisolone on board. Will need to establish an accurate medication record regarding recent changes in her warfarin dosing. States her blood sugars have been running low so we'll cut her long-acting insulin in half to see how we do and supplement with sliding scale NovoLog. With steroids this is likely to increase blood sugars and will adjust long-acting accordingly. Low sodium diet minimal fluids. [place] wraps to lower extremities. Up as tolerated. Oxygen to keep sats greater than 92 %. Follow troponins. Hold metformin secondary to recent IV contrast. Manage comorbidities and adjust medications if needed. Recently started on sertraline for depression. Will monitor affect and mood as well. She is having some mild anxiety which could either be related to underlying mood disorder versus acute respiratory distress so at this time will not adjust SSRI. She does wish to remain full code with the discussion at the bedside. She and daughter are in agreement with the above plan. Will work with pharmacy regarding medication accuracy and also with warfarin dosing.
[2017-11-29] MEDS ORDERED: Furosemide 40 MG Tab PO SCH (14:15)
[2017-11-29] MEDS ORDERED: Warfarin 5 MG Tab *PTOM PO SCH (16:00)
[2017-11-29] MEDS: Albuterol/Ipratropium 3.0-0.5 MG/3 ML Neb Soln NEB SCH ×2 (16:01→22:07)
--- NOTE | 2017-11-29 16:29 | CR ---
INDICATION: Low oxygen saturations. CHEST: An AP upright view of the chest was obtained, 11/29/2017, and was compared with 03/19/2014, revealing the heart to be enlarged similar to the previous study. Overlying EKG leads are noted. The aorta is tortuous. Bilateral shoulder arthroplasties are noted. These were present previously. A definite active infiltrate or effusion was not identified. However, upper lung field pulmonary vasculature is somewhat prominent and suggests the possibility of a mild degree of CHF, or early CHF. Findings should be correlated clinically. Evidence of exogenous obesity is also noted. IMPRESSION: 1. ASHD, cardiomegaly, CHF. Minimal, if any, interstitial lung edema. 2. Exogenous obesity. MTDD
[2017-11-29] MEDS ORDERED: Carbidopa/Levodopa 25-250 MG Tab PO SCH (17:00)
[2017-11-29] MEDS ORDERED: rOPINIRole 0.5 MG Tab PO SCH (17:00)
[2017-11-29] MEDS ORDERED: metFORMIN 500 MG Tab PO SCH (17:00)
[2017-11-29] MEDS: Insulin Aspart 100 Units/ML 3 ML Pen SUBCUT SCH (17:45)
[2017-11-29] MEDS: Furosemide 40 MG Tab *PTOM PO SCH (20:08)
[2017-11-29] MEDS ORDERED: atorvaSTATin 20 MG Tab PO SCH (21:00)
[2017-11-29] MEDS ORDERED: TOUJEO SUBCUT SCH (21:00)
[2017-11-29] MEDS ORDERED: [UNRECOGNIZED DRUG - OTHER] SQ SCH (21:00)
[2017-11-29] MEDS ORDERED: Gabapentin 300 MG Cap PO SCH (21:00)
[2017-11-29] MEDS ORDERED: INSULIN GLARGINE HUM REC ANLOG 46 UNIT SQ SCH (21:00)
[2017-11-29] MEDS ORDERED: Diazepam 5 MG Tab PO SCH (21:00)
[2017-11-29] MEDS ORDERED: LEVODOPA PO SCH (21:00)
[2017-11-29] MEDS ORDERED: CARBIDOPA PO SCH (21:00)
[2017-11-29] MEDS: methylPREDNISolone Sodium Succinate 125 MG/2 ML SDV IV SCH (22:08)
[2017-11-29] MEDS ORDERED: LEVODOPA PO ONE (22:30)
[2017-11-29] MEDS ORDERED: CARBIDOPA PO ONE (22:30)
[2017-11-29] MEDS ORDERED: ROPINIROLE 0.5 MG PO ONE (23:45)
[2017-11-29] MEDS: ROPINIROLE 0.5 MG PO SCH (23:56)
[2017-11-30] MEDS: methylPREDNISolone Sodium Succinate 125 MG/2 ML SDV IV SCH ×2 (02:16→09:00)
[2017-11-30] MEDS: Sodium Chloride 0.9% 10 ML Syringe FLUSH PRN (02:18)
[2017-11-30] MEDS: Albuterol/Ipratropium 3.0-0.5 MG/3 ML Neb Soln NEB SCH ×2 (07:02→12:07)
[2017-11-30] MEDS ORDERED: Ferrous Sulfate 325 MG Tab PO SCH (08:00)
[2017-11-30] MEDS ORDERED: Insulin Aspart 100 Units/ML 3 ML Pen SUBCUT STA (08:07)
[2017-11-30] MEDS: Insulin Aspart 100 Units/ML 3 ML Pen SUBCUT SCH ×2 (08:31→13:58)
[2017-11-30] MEDS: ROPINIROLE 0.5 MG PO SCH ×2 (08:57→12:09)
[2017-11-30] MEDS: Furosemide 40 MG Tab *PTOM PO SCH (08:58)
[2017-11-30] MEDS ORDERED: DIGOXIN 250 MCG PO SCH (09:00)
[2017-11-30] MEDS ORDERED: Sertraline 50 MG Tab *PTOM PO SCH (09:00)
[2017-11-30] MEDS ORDERED: Warfarin Sliding Scale PO SCH (09:00)
[2017-11-30] MEDS ORDERED: Non-Formulary Medication 1 Each (Multivitamin [Multivitamins] 1 EACH) PO SCH (09:00)
[2017-11-30] MEDS ORDERED: Sertraline 50 MG Tab PO SCH (09:00)
[2017-11-30] MEDS ORDERED: Metoprolol Tartrate 25 MG Tab PO SCH (09:15)
--- NOTE | 2017-11-30 11:49 | PCM.DCSUM1 ---
Discharge Summary - Hospital Course HPI Initial Comments: 72 y female admitted due to increasing sob, epigastic pain and dyspnea with exertion. - Discharge Data Discharge Date: 11/30/17 Discharge Disposition: Home, Self-Care 01 Condition: Good - Discharge Diagnosis/Problem(s) (1) COPD with exacerbation SNOMED Code(s): 026854737016416 ICD Code: J44.1 - CHRONIC OBSTRUCTIVE PULMONARY DISEASE W (ACUTE) EXACERBATION Status: Acute (2) Acute exacerbation of CHF (congestive heart failure) SNOMED Code(s): 31896439 ICD Code: I50.9 - HEART FAILURE, UNSPECIFIED Status: Acute (3) Asthma SNOMED Code(s): 253845601 ICD Code: J45.909 - UNSPECIFIED ASTHMA, UNCOMPLICATED Status: Chronic Priority: Medium Problem Details: (4) Palliative care patient SNOMED Code(s): 561094222 ICD Code: Z51.5 - ENCOUNTER FOR PALLIATIVE CARE Status: Acute (5) Afib, Atrial fibrillation SNOMED Code(s): 72263864 ICD Code: I48.91 - UNSPECIFIED ATRIAL FIBRILLATION Status: Chronic Priority: High Problem Details: (6) Diabetes mellitus type 2 in obese SNOMED Code(s): 38268527 ICD Code: E11.9 - TYPE 2 DIABETES MELLITUS WITHOUT COMPLICATIONS; E66.9 - OBESITY, UNSPECIFIED Status: Chronic Priority: High Problem Details: (7) Diabetic autonomic neuropathy SNOMED Code(s): 23657242 ICD Code: E11.43 - TYPE 2 DIABETES W DIABETIC AUTONOMIC (POLY)NEUROPATHY Status: Chronic Priority: Low Problem Details: continue home meds. (8) Hyperlipidemia SNOMED Code(s): 22805155 ICD Code: E78.5 - HYPERLIPIDEMIA, UNSPECIFIED Status: Chronic Priority: Medium Problem Details: (9) Peripheral edema SNOMED Code(s): 498739942 ICD Code: R60.9 - EDEMA, UNSPECIFIED Status: Chronic Priority: Medium Problem Details: (10) Restless legs SNOMED Code(s): 87563068 ICD Code: G25.81 - RESTLESS LEGS SYNDROME Status: Chronic Priority: Low Problem Details: continue home meds. (11) Obstructive sleep apnea syndrome SNOMED Code(s): 56362127 ICD Code: G47.33 - OBSTRUCTIVE SLEEP APNEA (ADULT) (PEDIATRIC) Status: Chronic Priority: High Problem Details: CPAP with and will use. (12) Arthritis SNOMED Code(s): 5976389 ICD Code: M19.90 - UNSPECIFIED OSTEOARTHRITIS, UNSPECIFIED SITE Status: Chronic Priority: Low Problem Details: - Patient Summary/Data Recommended Follow-up Testing/Procedures: follows with [facility] [place]. will have INR recheck on Sunday12/03/2017. Appt with PCP scheduled for Sun12/05/2017. Hospital Course: Admitted for COPD exacerbation, CHF exacerbation and respiratory distress. Treated with DuoNebs and incentive spirometry. Methylprednisolone Iv converted over to oral taper. warfarin dosing clarified and INRs followed. therapeutic. she will continue with 5 mg dose and get INR checked in 3 days and continue to follow with InR clinic. Her blood sugars had been running low so cut her long- acting insulin in half to see how she would do and now back up due to steroids, so increased long acting a bit. will continue with accu chks at home and bring these numbers to her up coming appt with PCP. Will continue with Teds as Mus[place] wraps were applied to bilateral lower extremities with significant improvement of edema. Has special set of teds at home that are extra large and zip so she agrees to start wearing. Hold metformin secondary to recent IV contrast. but will restart. Managed comorbidities. Recently started on sertraline for depression. affect and mood were appropriate. She is did have some mild anxiety. She and daughter are in agreement with the above plan. - Patient Instructions Diet: Heart Healthy Diet Showering/Bathing: May Shower Notify Provider of: Fever, Nausea and/or Vomiting Other/Special Instructions: Increasing dyspnea on exertion. Greater than 3 pound weight gain in 1 day or 5 pounds in 1 week. Unusual bruising or prolonged bleeding. - Discharge Plan Prescriptions/Med Rec: Albuterol/Ipratropium [DuoNeb 3.0-0.5 MG/3 ML] 3 ml NEB QID #90 neb Insulin Glargine,Hum.Rec.Anlog [Nida Blackostjeromy] 40 units SQ BEDTIME #3 ml Metoprolol Tartrate [Lopressor] 12.5 mg PO Q6H #30 tablet predniSONE [Prednisone] 10 mg PO ACBREAKFAST #1 tablet Home Medications: Home Meds Furosemide 80 mg PO BID 03/19/14 [History] Nitroglycerin [Nitrostat] 0.4 mg SL Q5M PRN 03/19/14 [History] Trimethoprim 100 mg PO DAILY 03/19/14 [History] metFORMIN [Glucophage] 1,000 mg PO BID 03/19/14 [History] Carbidopa/Levodopa [Carbidopa-Levo ER 50-200] 1 tab PO BEDTIME #30 tab.er [Rx] Calcium Citrate/Vitamin D3 [Calcium Citrate with D Tablet] 1 tab PO DAILY [History] Digoxin 0.25 mg PO MOWEFR 11/29/17 [History] Digoxin 125 mcg PO SUTUTHSA 11/29/17 [History] Ferrous Sulfate 325 mg PO WITHBREAKFAST 11/29/17 [History] Gabapentin [Neurontin] 300 mg PO TID PRN 11/29/17 [History] Sertraline HCl [Zoloft] 100 mg PO DAILY 11/29/17 [History] atorvaSTATin [Lipitor] 20 mg PO BEDTIME 11/29/17 [History] rOPINIRole [Requip] 0.5 mg PO QID 11/29/17 [History] Albuterol/Ipratropium [DuoNeb 3.0-0.5 MG/3 ML] 3 ml NEB QID #90 neb 11/30/17 [Rx ] Diazepam [Valium] 10 mg PO BEDTIME tablet 11/30/17 [Rx] Insulin Glargine,Hum.Rec.Anlog [Toujeo Solostar] 40 units SQ BEDTIME #3 ml 11/30 [Rx] Metoprolol Tartrate [Lopressor] 12.5 mg PO Q6H #30 tablet 11/30/17 [Rx] Warfarin [Coumadin] 5 mg PO 1600 tablet 11/30/17 [Rx] predniSONE [Prednisone] 10 mg PO ACBREAKFAST #1 tablet 11/30/17 [Rx] Patient Handouts: Metoprolol tablets, Albuterol; Ipratropium solution for inhalation, Prednisone tablets Forms: ED Department Discharge Referrals: Nate Garcias MD [Primary Care Provider] - 12/05/17 4:00 pm (Please follow up with Dr. Garcias. You already have an appointment scheduled for Tuesday December 05, 2017 at 4:00pm. ) - Discharge Summary/Plan Comment DC Time >30 min.: Yes Discharge Summary/Plan Comment: Please see hospital course. - Patient Data Vitals - Most Recent: Last Vital Signs Temp 98.6 F 11/30/17 08:00 Pulse 80 H 11/30/17 11:20 Resp 18 11/30/17 08:00 BP 122/63 11/30/17 11:20 Pulse Ox 99 11/30/17 08:00 Weight - Most Recent: 114.078 kg I&O - Last 24 hours: Intake & Output 11/29/17 11/30/17 11/30/17 22:59 06:59 14:59 Intake Total 300 400 Output Total 75 250 Balance -75 50 400 Lab Results - Last 24 hrs: Laboratory Results - last 24 hr 11/29/17 11/29/17 11/29/17 Range/Units 14:25 17:40 19:00 WBC (4.5-12.0) X10-3/uL RBC (3.23-5.20) x10(6)uL Hgb (11.5-15.5) g/dL Hct (30.0-51.3) % MCV (80-96) fL MCH (27.7-33.6) pg MCHC (32.2-35.4) g/dL RDW (11.5-15.5) % Plt Count (125-369) X10(3)uL MPV (7.4-10.4) fL Add Manual Diff Neutrophils % (Manual) (46-82) % Lymphocytes % (Manual) (13-37) % Monocytes % (Manual) (4-12) % PT (8.7-11.1) INR (0.89-1.13) Sodium (135-145) mmol/L Potassium (3.5-5.3) mmol/L Chloride (100-110) mmol/L Carbon Dioxide (21-32) mmol/L BUN (7-18) mg/dL Creatinine (0.55-1.02) mg/dL Est Cr Clr Drug Dosing mL/min Estimated GFR (MDRD) (>60) BUN/Creatinine Ratio (9-20) Glucose (80-116) mg/dL POC Glucose 213 H (80-116) mg/dL Calcium (8.6-10.2) mg/dL Troponin I < 0.017 L < 0.017 L (<0.017-0.056) ng/mL Digoxin 0.7 L (0.9-2.0) ng/mL 11/29/17 11/30/17 11/30/17 Range/Units 21:36 06:20 06:20 WBC 5.6 (4.5-12.0) X10-3/uL RBC 4.10 (3.23-5.20) x10(6)uL Hgb 12.2 (11.5-15.5) g/dL Hct 36.1 (30.0-51.3) % MCV 88.1 (80-96) fL MCH 29.8 (27.7-33.6) pg MCHC 33.8 (32.2-35.4) g/dL RDW 15.0 (11.5-15.5) % Plt Count 237 (125-369) X10(3)uL MPV 9.8 (7.4-10.4) fL Add Manual Diff Yes Neutrophils % (Manual) 87 H (46-82) % Lymphocytes % (Manual) 12 L (13-37) % Monocytes % (Manual) 1 L (4-12) % PT (8.7-11.1) INR (0.89-1.13) Sodium 137 (135-145) mmol/L Potassium 4.0 (3.5-5.3) mmol/L Chloride 98 L (100-110) mmol/L Carbon Dioxide 29 (21-32) mmol/L BUN 23 H (7-18) mg/dL Creatinine 1.2 H (0.55-1.02) mg/dL Est Cr Clr Drug Dosing 30.44 mL/min Estimated GFR (MDRD) 44 L (>60) BUN/Creatinine Ratio 19.2 (9-20) Glucose 412 H* D (80-116) mg/dL POC Glucose 268 H (80-116) mg/dL Calcium 7.9 L (8.6-10.2) mg/dL Troponin I (<0.017-0.056) ng/mL Digoxin (0.9-2.0) ng/mL 11/30/17 Range/Units 06:20 WBC (4.5-12.0) X10-3/uL RBC (3.23-5.20) x10(6)uL Hgb (11.5-15.5) g/dL Hct (30.0-51.3) % MCV (80-96) fL MCH (27.7-33.6) pg MCHC (32.2-35.4) g/dL RDW (11.5-15.5) % Plt Count (125-369) X10(3)uL MPV (7.4-10.4) fL Add Manual Diff Neutrophils % (Manual) (46-82) % Lymphocytes % (Manual) (13-37) % Monocytes % (Manual) (4-12) % PT 18.4 H (8.7-11.1) INR 1.80 H (0.89-1.13) Sodium (135-145) mmol/L Potassium (3.5-5.3) mmol/L Chloride (100-110) mmol/L Carbon Dioxide (21-32) mmol/L BUN (7-18) mg/dL Creatinine (0.55-1.02) mg/dL Est Cr Clr Drug Dosing mL/min Estimated GFR (MDRD) (>60) BUN/Creatinine Ratio (9-20) Glucose (80-116) mg/dL POC Glucose (80-116) mg/dL Calcium (8.6-10.2) mg/dL Troponin I (<0.017-0.056) ng/mL Digoxin (0.9-2.0) ng/mL Med Orders - Current: Current Medications Acetaminophen (Tylenol) 650 mg PO Q4H PRN PRN Reason: Pain (Mild 1-3)/fever Last Admin: 11/30/17 03:40 Dose: 650 mg Albuterol/Ipratropium (Duoneb 3.0-0.5 Mg/3 Ml) 3 ml NEB QIDRT [facility] Last Admin: 11/30/17 07:02 Dose: 3 ml Atorvastatin Calcium (Lipitor) 20 mg PO BEDTIME [facility] Last Admin: 11/29/17 22:15 Dose: 20 mg Carbidopa/Levodopa (Sinemet Cr 50-200 Mg) 1 tab PO BEDTIME [facility] Diazepam (Valium.) 10 mg PO BEDTIME [facility] Last Admin: 11/29/17 22:14 Dose: 10 mg Digoxin (Lanoxin) 250 mcg PO MOWEFR [facility] Last Admin: 11/30/17 08:57 Dose: 250 mcg Digoxin (Lanoxin) 125 mcg PO SUTUTHSA [facility] Ferrous Sulfate (Ferrous Sulfate) 325 mg PO WITHBREAKFAST [facility] Last Admin: 11/30/17 08:56 Dose: 325 mg Furosemide (Lasix) 80 mg PO BIDDIURETIC [facility] Last Admin: 11/30/17 08:58 Dose: 80 mg Lactated Ringer's (Ringers, Lactated) 1,000 mls @ 80 mls/hr IV ASDIRECTED [facility] Insulin Aspart (Novolog) 0 unit SUBCUT TIDMEALS [facility] PRN Reason: Protocol Last Admin: 11/30/17 08:31 Dose: Not Given Methylprednisolone Sodium Succinate (Solu-Medrol) 62.5 mg IV Q6H [facility] Last Admin: 11/30/17 09:00 Dose: 62.5 mg Metoprolol Tartrate (Lopressor) 12.5 mg PO Q6H [facility] Last Admin: 11/30/17 11:20 Dose: 12.5 mg Nitroglycerin (Nitrostat) 0.4 mg SL Q5M PRN PRN Reason: Chest Pain Toujeo *Ptom 0 each SUBCUT BEDTIME [facility] Ondansetron HCl (Zofran) 4 mg IV Q6H PRN PRN Reason: Nausea/Vomiting Ropinirole HCl (Requip) 0.5 mg PO QID [facility] Last Admin: 11/30/17 08:57 Dose: 0.5 mg Senna/Docusate Sodium (Senna Plus) 1 tab PO BID PRN PRN Reason: Constipation Sertraline HCl (Zoloft) 100 mg PO DAILY [facility] Last Admin: 11/30/17 08:58 Dose: 100 mg Sodium Chloride (Saline Flush) 10 ml FLUSH ASDIRECTED PRN PRN Reason: Keep Vein Open Last Admin: 11/30/17 02:18 Dose: 10 ml Trimethoprim (Trimethoprim) 100 mg PO DAILY [facility] Last Admin: 11/30/17 08:59 Dose: 100 mg Warfarin Sodium (Coumadin Sliding Scale) 1 each PO DAILY [facility] Warfarin Sodium (Coumadin) 5 mg PO 1600 [facility] Discontinued Medications Albuterol/Ipratropium (Duoneb 3.0-0.5 Mg/3 Ml) 3 ml NEB ONETIME ONE Stop: 11/29/17 10:45 Last Admin: 11/29/17 10:51 Dose: 3 ml Aspirin (Aspirin) 324 mg PO ONETIME ONE Stop: 11/29/17 09:21 Last Admin: 11/29/17 09:33 Dose: 324 mg Carbidopa/Levodopa (Sinemet Cr 50-200 Mg) 1 tab PO BEDTIME [facility] Last Admin: 11/30/17 00:25 Dose: Not Given Carbidopa/Levodopa (Sinemet 25-250 Mg) 1 tab PO QID [facility] Carbidopa/Levodopa (Sinemet 25-250 Mg) 2 tab PO BEDTIME [facility] Carbidopa/Levodopa (Sinemet Cr 50-200 Mg) 1 tab PO ONETIME ONE Stop: 11/29/17 22:31 Last Admin: 11/29/17 22:23 Dose: 1 tab Diazepam (Valium.) 5 mg PO BEDTIME PRN PRN Reason: Insomnia Furosemide (Lasix) mg PO DAILY [facility] Gabapentin (Neurontin) 300 mg PO TID [facility] Insulin Aspart (Novolog) 20 unit SUBCUT NOW STA Stop: 11/30/17 08:08 Last Admin: 11/30/17 08:30 Dose: 20 units Iopamidol (Isovue-370 (76%)) 100 ml IV . DIRECTED ONE Stop: 11/29/17 11:33 Last Admin: 11/29/17 11:53 Dose: 100 ml Metformin HCl (Glucophage) mg PO QID [facility] Methylprednisolone Sodium Succinate (Solu-Medrol) 125 mg IVPUSH ONETIME ONE Stop: 11/29/17 12:50 Last Admin: 11/29/17 12:56 Dose: 125 mg Non-Formulary Medication (Insulin Glargine,Hum.Rec.Anlog [Nida Rangel]) 46 units SQ BEDTIME [facility] Ondansetron HCl (Zofran) 8 mg IVPUSH ONETIME ONE Stop: 11/29/17 09:38 Last Admin: 11/29/17 10:24 Dose: 8 mg Pantoprazole Sodium (Protonix Iv) 40 mg IVPUSH ONETIME ONE Stop: 11/29/17 09:38 Last Admin: 11/29/17 10:24 Dose: 40 mg Ropinirole HCl (Requip) 0.5 mg PO ONETIME ONE Stop: 11/29/17 11:46 Last Admin: 11/29/17 11:34 Dose: 0.5 mg Ropinirole HCl (Requip) 0.5 mg PO QID [facility] Ropinirole HCl (Requip) 0.5 mg PO ONETIME ONE Stop: 11/29/17 23:46 Last Admin: 11/29/17 23:52 Dose: 0.5 mg Ropinirole HCl (Requip) 0.5 mg PO ONETIME ONE Stop: 11/29/17 23:46 Last Admin: 11/29/17 23:54 Dose: Not Given Sertraline HCl (Zoloft) 50 mg PO DAILY [facility] Zolpidem Tartrate (Ambien) 5 mg PO BEDTIME PRN PRN Reason: Sleep - Exam Physical Findings Comments:: Quality Assessment: RA General: Alert, Oriented, Cooperative, breathing comfortably and no distress HEENT: Mucosa Moist & [place] Neck: Supple, Trachea Midline, JVD Lungs: improved Breath Sounds (Bilateral), Rales (Fine bilateral lower lobe), Wheezing resolved. Cardiovascular: Irregular Rhythm, normal rate, Systolic Murmur GI/Abdominal Exam: Normal Bowel Sounds, Soft, Non-Tender Extremities: Other (2+ pitting edema up to the knee. Symmetric. No erythema warmth or tenderness. Capillary refill 3 seconds. Extremities warm.) Skin: No: Rash, Petechia, Ecchymosis Neurological: Strength Equal Bilateral, Sensation Intact. No: Focal Deficit Psychiatric: Normal Affect and mood. *Q Meaningful Use (DIS) - VTE *Q VTE Criteria *Q: - Stroke *Q Stroke Criteria *Q: - AMI *Q AMI Criteria *Q:
[2017-11-30] MEDS ORDERED: Insulin Aspart 100 Units/ML 3 ML Pen SUBCUT ONE (12:00)
[2017-11-30] MEDS ORDERED: CARBIDOPA PO SCH (21:00)
[2017-11-30] MEDS ORDERED: LEVODOPA PO SCH (21:00)
[2017-11-30] MEDS ORDERED: Carbidopa/Levodopa 25-250 MG Tab PO SCH (21:00)
[2017-12-01] MEDS ORDERED: Digoxin 125 MCG Tab *PTOM PO SCH (09:00)
== END 2017-11-30 12:40 | disposition home or self-care (01) ==
LOC: FB.ED 09:15 → FB.MS 12:45
PROVIDERS: ADMIT Family Medicine; ATTEND Family Medicine
DX: J44.1 Chronic obstructive pulmonary disease with (acute) exacerbation (principal); I50.9 Heart failure, unspecified; I48.91 Unspecified atrial fibrillation; E11.43 Type 2 diabetes mellitus with diabetic autonomic (poly)neuropathy; E78.5 Hyperlipidemia, unspecified; R60.9 Edema, unspecified; G25.81 Restless legs syndrome; G47.33 Obstructive sleep apnea (adult) (pediatric); M19.90 Unspecified osteoarthritis, unspecified site; F32.9 Major depressive disorder, single episode, unspecified; E66.9 Obesity, unspecified; E11.69 Type 2 diabetes mellitus with other specified complication; G20 Parkinson's disease; Z51.5 Encounter for palliative care; Z79.899 Other long term (current) drug therapy; Z79.4 Long term (current) use of insulin; Z79.01 Long term (current) use of anticoagulants; Z90.49 Acquired absence of other specified parts of digestive tract
CPT/HCPCS: 36415; 71045; 71275; 80048; 80076; 80162; 82150; 82962; 83036; 83880; 84484; 85025; 85379; 85610; 93005; 94150; 94640; 96374; 96375; 99285; A9270; C9113; J2405; J2930; J7050; J7620; Q9967; 96376; 99217; 99220; G0378

== ENCOUNTER 2018-01-15 12:36 | Emergency (ER) | payer MEDICARE, BC ==
--- NOTE | 2018-01-15 13:06 | EDM.PDOC ---
ED HPI GENERAL MEDICAL PROBLEM - General Chief Complaint: Cardiovascular Problem Stated Complaint: HEART RATE Time Seen by Provider: 01/15/18 13:00 Source of Information: Reports: Patient, Old Records, RN, Other (Referred from the clinic, no call from the clinic about the referral.) History Limitations: Reports: Other (see source of info) - History of Present Illness INITIAL COMMENTS - FREE TEXT/NARRATIVE: 72 yo female with pHx of afib was referred from the clinic for afib with RVR. She states she was on low dose metoprolol and she ran out. She wasn't sure if she was supposed to stop it or not, but didn't call to ask. Denies SOB or CP. Her INR has been 2.7 the last 2 times she was checked, her last check being about a week or two ago. Other than running out of her metoprolol she has been taking her meds as prescribed. Has no orthopnea. Onset: Unknown/Unsure Onset Date: 01/15/18 (Patient was asymptomatic, picked up in clinic and referred to the hospital.) - Related Data Allergies Allergy/AdvReac Type Severity Reaction Status Date / Time ropinirole [From Requip] Allergy Confusion Verified 01/15/18 12:49 Home Meds: Home Meds Furosemide 80 mg PO BID 03/19/14 [History] Nitroglycerin [Nitrostat] 0.4 mg SL Q5M PRN 03/19/14 [History] Trimethoprim 100 mg PO DAILY 03/19/14 [History] metFORMIN [Glucophage] 1,000 mg PO BID 03/19/14 [History] Carbidopa/Levodopa [Carbidopa-Levo ER 50-200] 1 tab PO BEDTIME #30 tab.er [Rx] Calcium Citrate/Vitamin D3 [Calcium Citrate with D Tablet] 1 tab PO DAILY [History] Digoxin 0.25 mg PO MOWEFR 11/29/17 [History] Digoxin 125 mcg PO SUTUTHSA 11/29/17 [History] Ferrous Sulfate 325 mg PO WITHBREAKFAST 11/29/17 [History] Gabapentin [Neurontin] 300 mg PO TID PRN 11/29/17 [History] Sertraline HCl [Zoloft] 100 mg PO DAILY 11/29/17 [History] atorvaSTATin [Lipitor] 20 mg PO BEDTIME 11/29/17 [History] rOPINIRole [Requip] 0.5 mg PO QID 11/29/17 [History] Albuterol/Ipratropium [DuoNeb 3.0-0.5 MG/3 ML] 3 ml NEB QID #90 neb 11/30/17 [Rx ] Diazepam [Valium] 10 mg PO BEDTIME tablet 11/30/17 [Rx] Insulin Glargine,Hum.Rec.Anlog [Toujeo Solostar] 40 units SQ BEDTIME #3 ml 11/30 [Rx] Metoprolol Tartrate [Lopressor] 12.5 mg PO Q6H #30 tablet 11/30/17 [Rx] Warfarin [Coumadin] 5 mg PO 1600 tablet 11/30/17 [Rx] predniSONE [Prednisone] 10 mg PO ACBREAKFAST #1 tablet 11/30/17 [Rx] Past Medical History Cardiovascular History: Reports: Afib, High Cholesterol Respiratory History: Reports: None [employer] History: Reports: Musculoskeletal History: Reports: Arthritis Neurological History: Reports: Concussion Psychiatric History: Reports: Depression Endocrine/Metabolic History: Reports: Diabetes, Type II - Infectious Disease History Infectious Disease History: Reports: Chicken Pox, Measles, Mumps - Past Surgical History GI Surgical History: Reports: Appendectomy, Cholecystectomy Musculoskeletal Surgical History: Reports: Knee Replacement, Shoulder Replacement Social & Family History - Family History Family Medical History: Noncontributory - Tobacco Use Smoking Status *Q: Never Smoker Second Hand Smoke Exposure: No - Caffeine Use Caffeine Use: Reports: Coffee, Soda Other Caffeine Use: 1-2 per day - Alcohol Use Days Per Week of Alcohol Use: 1 Number of Drinks Per Day: 0 Total Drinks Per Week: 0 - Recreational Drug Use Recreational Drug Use: No - Living Situation & Occupation Living situation: Reports: ED ROS GENERAL - Review of Systems Review Of Systems: See Below Constitutional: Reports: No Symptoms HEENT: Reports: No Symptoms Respiratory: Reports: No Symptoms Cardiovascular: Reports: Palpitations Endocrine: Reports: No Symptoms GI/Abdominal: Reports: No Symptoms : Reports: No Symptoms Musculoskeletal: Reports: No Symptoms Skin: Reports: No Symptoms Neurological: Reports: No Symptoms ED EXAM, GENERAL - Physical Exam Exam: See Below Exam Limited By: No Limitations General Appearance: Alert, WD/WN, No Apparent Distress, Obese Eye Exam: Bilateral Eye: Normal Inspection Ears: Normal External Exam, Normal Canal, Hearing Grossly Normal Ear Exam: Bilateral Ear: Auricle Normal, Canal Normal Nose: Normal Inspection, Normal Mucosa Throat/Mouth: Normal Inspection, Normal Lips, Normal Oropharynx, Normal Voice, No Airway Compromise Head: Atraumatic, Normocephalic Neck: Normal Inspection Respiratory/Chest: No Respiratory Distress, Lungs Clear, Normal Breath Sounds, No Accessory Muscle Use. No: Crackles, Rales, Wheezing Cardiovascular: Tachycardia, Irregularly Irregular, Other (Able to breath comfortably lying flat with only Rm air. ) GI/Abdominal: Normal Bowel Sounds, Soft, Non-Tender, No Distention Back Exam: Normal Inspection Extremities: Normal Inspection, Normal Range of Motion, Non-Tender, Pedal Edema Neurological: Alert, Oriented, CN II-XII Intact, Normal Cognition, No Motor/ Sensory Deficits Psychiatric: Normal Affect, Normal Mood Skin Exam: Warm, Dry, Intact, Normal Color, No Rash EKG INTERPRETATION EKG Date: 01/15/18 Time: 12:55 Rhythm: A-Fib Rate (Beats/Min): 141 [place]: RAD-Right [place] Deviation P-Wave: Absent QRS: Normal ST-T: Normal QT: Prolonged Comparison: Change From Previous EKG (Rate increase only, otherwise no change.) Course - Vital Signs Text/Narrative:: Metoprolol 25 mg po dropped her BP about 10 pts systolic to 112, but had only a minimal effect on her HR. Digoxin 0.25 mg IV was also given and her HR slowed satisfactorily with this change. Last Recorded V/S: Last Vital Signs Temp 36.5 C 01/15/18 12:36 Pulse 149 H 01/15/18 13:26 Resp 18 01/15/18 12:36 BP 124/83 01/15/18 13:26 Pulse Ox 98 01/15/18 12:36 - Orders/Labs/Meds Orders: Active Orders 24 hr Category Date Time Status Cardiac Monitoring [RC] .As Directed Care 01/15/18 13:01 Active EKG 12 Lead [EK] Routine Ther 01/15/18 13:01 Ordered Labs: Laboratory Tests 01/15/18 01/15/18 01/15/18 Range/Units 13:20 13:20 13:20 WBC 8.2 (4.5-12.0) X10-3/uL RBC 4.69 (3.23-5.20) x10(6)uL Hgb 13.3 (11.5-15.5) g/dL Hct 40.8 (30.0-51.3) % MCV 87.0 (80-96) fL MCH 28.5 (27.7-33.6) pg MCHC 32.7 (32.2-35.4) g/dL RDW 17.0 H (11.5-15.5) % Plt Count 349 (125-369) X10(3)uL PT 29.9 H (8.7-11.1) INR 2.90 H (0.89-1.13) Sodium (135-145) mmol/L Potassium (3.5-5.3) mmol/L Chloride (100-110) mmol/L Carbon Dioxide (21-32) mmol/L BUN (7-18) mg/dL Creatinine (0.55-1.02) mg/dL Est Cr Clr Drug Dosing Estimated GFR (MDRD) (>60) BUN/Creatinine Ratio (9-20) Glucose (80-116) mg/dL Calcium (8.6-10.2) mg/dL Troponin I (<0.017-0.056) ng/mL NT-Pro-B Natriuret Pep (<=125) pg/mL TSH, Ultra Sensitive 6.43 H (0.36-3.74) IU/mL 01/15/1818 01/15/18 Range/Units 13:20 13:20 13:20 WBC (4.5-12.0) X10-3/uL RBC (3.23-5.20) x10(6)uL Hgb (11.5-15.5) g/dL Hct (30.0-51.3) % MCV (80-96) fL MCH (27.7-33.6) pg MCHC (32.2-35.4) g/dL RDW (11.5-15.5) % Plt Count (125-369) X10(3)uL PT (8.7-11.1) INR (0.89-1.13) Sodium 137 (135-145) mmol/L Potassium 4.9 (3.5-5.3) mmol/L Chloride 101 (100-110) mmol/L Carbon Dioxide 27 (21-32) mmol/L BUN 28 H (7-18) mg/dL Creatinine 1.1 H (0.55-1.02) mg/dL Est Cr Clr Drug Dosing TNP Estimated GFR (MDRD) 49 L (>60) BUN/Creatinine Ratio 25.5 H (9-20) Glucose 90 D (80-116) mg/dL Calcium 8.2 L (8.6-10.2) mg/dL Troponin I < 0.017 L (<0.017-0.056) ng/mL NT-Pro-B Natriuret Pep 1783 H* (<=125) pg/mL TSH, Ultra Sensitive (0.36-3.74) IU/mL Meds: Medications Discontinued Medications Generic Name Dose Route Start Last Admin Trade Name Freq PRN Reason Stop Dose Admin Carbidopa/Levodopa 1 tab 01/15/18 14:00 01/15/18 13:57 Sinemet 25-250 Mg PO 01/15/18 14:01 1 tab ONETIME ONE Administration Digoxin 250 mcg 01/15/18 14:02 01/15/18 14:06 Lanoxin IVPUSH 01/15/18 14:03 250 mcg ONETIME ONE Administration Diltiazem HCl 120 mg 01/15/18 14:26 Cardizem Cd PO 01/15/18 14:27 ONETIME ONE Diltiazem HCl 30 mg 01/15/18 14:27 Cardizem PO 01/15/18 14:28 ONETIME ONE Metoprolol Tartrate 25 mg 01/15/18 13:19 01/15/18 13:26 Lopressor PO 01/15/18 13:20 25 mg ONETIME ONE Administration Pramipexole Dihydrochloride 1.5 mg 01/15/18 14:45 01/15/18 14:43 Mirapex PO 01/15/18 14:46 1.5 mg ONETIME ONE Administration Departure - Departure Time of Disposition: 15:25 Disposition: Home, Self-Care 01 Condition: Good Clinical Impression: Atrial fibrillation with RVR, Restless legs CHF (congestive heart failure) Qualifiers: Heart failure type: unspecified Heart failure chronicity: chronic Qualified Code(s): I50.9 - Heart failure, unspecified Referrals: Jazmin Pace MD [Primary Care Provider] - Forms: ED Department Discharge Additional Instructions: Increase your digoxin to 0.25 mg every day. Continue all your other meds as currently. Recheck in the clinic by the end of this week for recheck. Return if worse. - My Orders Last 24 Hours: My Active Orders 01/15/18 13:01 Cardiac Monitoring [RC] .As Directed EKG 12 Lead [EK] Routine - Assessment/Plan Last 24 Hours: My Active Orders 01/15/18 13:01 Cardiac Monitoring [RC] .As Directed EKG 12 Lead [EK] Routine
[2018-01-15] MEDS ORDERED: Metoprolol Tartrate 25 MG Tab PO ONE (13:19)
[2018-01-15] MEDS ORDERED: Carbidopa/Levodopa 50-200 MG Tab.ER PO ONE (13:30)
[2018-01-15] MEDS ORDERED: Carbidopa/Levodopa 25-250 MG Tab PO ONE (14:00)
[2018-01-15] MEDS ORDERED: Digoxin 500 MCG/2 ML Amp IVPUSH ONE (14:02)
[2018-01-15] MEDS ORDERED: Pramipexole 0.25 MG Tab PO STA (14:26)
[2018-01-15] MEDS ORDERED: Diltiazem 120 MG Cap.CD PO ONE (14:26)
[2018-01-15] MEDS ORDERED: Diltiazem IR 30 MG Tab PO ONE (14:27)
== END 2018-01-15 15:57 | disposition home or self-care (01) ==
LOC: FB.ED 12:36 → EDSTATUS 12:36 → FB.ED 15:57
DX: I48.91 Unspecified atrial fibrillation (principal); I50.9 Heart failure, unspecified; G25.81 Restless legs syndrome; E78.00 Pure hypercholesterolemia, unspecified; E11.9 Type 2 diabetes mellitus without complications; F32.9 Major depressive disorder, single episode, unspecified; Z88.8 Allergy status to other drugs, medicaments and biological substances; Z79.899 Other long term (current) drug therapy; Z79.4 Long term (current) use of insulin
CPT/HCPCS: 36415; 80048; 83880; 84443; 84484; 85027; 85610; 93005; 96374; 99285; A9270; J1160

== ENCOUNTER 2018-03-29 12:10 | Emergency (ER) | payer MEDICARE, BC ==
[2018-03-29] MEDS ORDERED: Sodium Chloride 0.9% 10 ML Syringe FLUSH PRN (12:33)
--- NOTE | 2018-03-29 12:42 | EDM.PDOC ---
ED HPI GENERAL MEDICAL PROBLEM - General Chief Complaint: Neuro Symptoms/Deficits Stated Complaint: CONFUSION Time Seen by Provider: 03/29/18 12:10 Source of Information: Reports: Patient, Family, Old Records History Limitations: Reports: Altered Mental Status - History of Present Illness INITIAL COMMENTS - FREE TEXT/NARRATIVE: Delmis comes to [facility] ED with spouse from PT with generalized weakness and some confusion. She appeared baseline this am, performed ADLs, and then eventually went to PT appt for managment of hip and leg pain. Staff called that she was not acting normally, with apparent weakness, fatigue, and some confusion. Upon arrival, VSS, drowsy but easily aroused to verbal instruction. She knew her name , where she was, but was incorrect with date, time, and circumstances. Speech was not slurred, and there were no focal neurologic deficits. Her non FBS 104 mg %. Spouse reports some intermittent episodes of confusion over the past 2 mos. - Related Data Allergies Allergy/AdvReac Type Severity Reaction Status Date / Time ropinirole [From Requip] Allergy Confusion Verified 03/29/18 15:35 Home Meds: Home Meds Nitroglycerin [Nitrostat] 0.4 mg SL Q5M PRN 03/19/14 [History] Trimethoprim 100 mg PO DAILY 03/19/14 [History] metFORMIN [Glucophage] 1,000 mg PO BID 03/19/14 [History] Carbidopa/Levodopa [Carbidopa-Levo ER 50-200] 1 tab PO BEDTIME #30 tab.er [Rx] Digoxin 0.25 mg PO DAILY 11/29/17 [History] Gabapentin [Neurontin] 300 mg PO BEDTIME PRN 11/29/17 [History] atorvaSTATin [Lipitor] 20 mg PO DAILY 11/29/17 [History] Acetaminophen with Codeine [Acetaminophen-Cod #3] 1 - 2 each PO Q4H 03/29/18 [ History] Amoxicillin/Potassium Clav [Augmentin 875-125 Tablet] 1 each PO BID #14 tablet 03/29/18 [Rx] Bumetanide [Bumex] 1 mg PO DAILY 03/29/18 [History] Diazepam [Valium] 10 mg PO BEDTIME PRN 03/29/18 [History] Diclofenac Sodium [Voltaren] 4 g TOP BID 03/29/18 [History] Insulin Glargine,Hum.Rec.Anlog [Nida Rangel] 46 units SQ BEDTIME 03/29/18 [ History] Levothyroxine 75 mcg PO DAILY 03/29/18 [History] Melatonin 3 mg PO BEDTIME 03/29/18 [History] Multivitamin [Daily Multiple Vitamin] 1 tab PO DAILY 03/29/18 [History] Pramipexole Di-HCl [Mirapex] 1.5 mg PO BID PRN 03/29/18 [History] Spironolactone [Aldactone] 25 mg PO DAILY 03/29/18 [History] Warfarin [Coumadin] 1 tab PO ASDIRECTED 03/29/18 [History] Past Medical History Cardiovascular History: Reports: Afib, High Cholesterol Respiratory History: Reports: None [employer] History: Reports: Musculoskeletal History: Reports: Arthritis Neurological History: Reports: Concussion Psychiatric History: Reports: Depression Endocrine/Metabolic History: Reports: Diabetes, Type II - Infectious Disease History Infectious Disease History: Reports: Chicken Pox, Measles, Mumps - Past Surgical History GI Surgical History: Reports: Appendectomy, Cholecystectomy Musculoskeletal Surgical History: Reports: Knee Replacement, Shoulder Replacement Social & Family History - Family History Family Medical History: Noncontributory - Tobacco Use Smoking Status *Q: Never Smoker Second Hand Smoke Exposure: No - Caffeine Use Caffeine Use: Reports: Coffee, Soda Other Caffeine Use: 1-2 per day - Alcohol Use Days Per Week of Alcohol Use: 1 Number of Drinks Per Day: 0 Total Drinks Per Week: 0 - Recreational Drug Use Recreational Drug Use: No - Living Situation & Occupation Living situation: Reports: ED ROS GENERAL - Review of Systems Review Of Systems: Unable To Obtain ED EXAM, GENERAL - Physical Exam Exam: See Below Exam Limited By: Altered Mental Status General Appearance: Lethargic Eye Exam: Bilateral Eye: EOMI, Normal Inspection, PERRL Ears: Normal External Exam, Normal TMs Nose: Normal Inspection Throat/Mouth: Normal Inspection, Normal Lips, Normal Oropharynx Head: Normocephalic Neck: Normal Inspection, Supple, Non-Tender, Full Range of Motion Respiratory/Chest: Lungs Clear, Normal Breath Sounds Cardiovascular: No Edema, No JVD, No Murmur, Irregularly Irregular GI/Abdominal: Normal Bowel Sounds, Soft, Non-Tender, No Organomegaly, No Distention, No Mass (Female) Exam: Deferred Rectal (Female) Exam: Deferred Back Exam: Normal Inspection Extremities: Normal Inspection Neurological: CN II-XII Intact, No Motor/Sensory Deficits, Confused, Slow to Respond Psychiatric: Flat Affect Skin Exam: Warm, Dry, Intact Lymphatic: No Adenopathy Course - Vital Signs Text/Narrative:: Delmis remained lethargic at [facility] ED for several hours, but seemed to improved about an hour before discharge, consuming a meal and carrying on a limited conversation with spouse. Screening labs noted: Hgb 12.o gm, WBC 10,400, plts normal; PT 19/ INR 1.86; d dimer 784, Cr 1.3, digoxin 3.0; head CT: extensive white matter disease, cerebral atrophy, R max sinusitis; Brain MRI: extensive white matter disease, 8 mm focus R frontal lobe of unknown significance; Delmis is discharge home clinically improved. I will treat a R max sinusitis with Augmentin Last Recorded V/S: Last Vital Signs Temp 36.3 C 03/29/18 12:25 Pulse Resp BP Pulse Ox 95 03/29/18 12:57 - Orders/Labs/Meds Orders: Active Orders 24 hr Category Date Time Status Insert Urinary Catheter [OM.PC] Q24H Care 03/29/18 14:40 Ordered Urinary Catheter Assessment [RC] ASDIRECTED Care 03/29/18 14:54 Active Brain w wo Cont [MR] Stat Exams 03/29/18 14:52 Taken UA W/MICROSCOPIC [URIN] Stat Lab 03/29/18 14:35 Ordered Dextrose 5%-Lactated Ringers 1,000 ml Med 03/29/18 15:15 Active IV ASDIRECTED Sodium Chloride 0.9% [Saline Flush] Med 03/29/18 12:33 Active 10 ml FLUSH ASDIRECTED PRN Peripheral IV Insertion Adult [OM.PC] Routine Oth 03/29/18 12:33 Ordered EKG 12 Lead [EK] Routine Ther 03/29/18 12:33 Ordered Medication Orders Dextrose/Lactated Ringer's (Dextrose 5%-Lactated Ringers) 1,000 mls @ 150 mls/ hr IV ASDIRECTED SHEA Last Infusion: 03/29/18 16:05 Dose: 500 mls/hr Admin: 03/29/18 15:55 Dose: 150 mls/hr Sodium Chloride (Saline Flush) 10 ml FLUSH ASDIRECTED PRN PRN Reason: Keep Vein Open Labs: Laboratory Tests 03/29/18 03/29/18 03/29/18 Range/Units 12:30 12:45 12:45 WBC 10.4 (4.5-12.0) X10-3/uL RBC 4.43 (3.23-5.20) x10(6)uL Hgb 12.0 (11.5-15.5) g/dL Hct 36.6 (30.0-51.3) % MCV 82.7 (80-96) fL MCH 27.2 L (27.7-33.6) pg MCHC 32.8 (32.2-35.4) g/dL RDW 17.1 H (11.5-15.5) % Plt Count 316 (125-369) X10(3)uL MPV 8.8 (7.4-10.4) fL Neut % (Auto) 69.7 (46-82) % Lymph % (Auto) 19.7 (13-37) % Aiken % (Auto) 6.2 (4-12) % Eos % (Auto) 4 (1.0-5.0) % Baso % (Auto) 1 (0-2) % Neut # (Auto) 7.3 (1.6-8.3) # Lymph # (Auto) 2.0 (0.6-5.0) # Aiken # (Auto) 0.6 (0.0-1.3) # Eos # (Auto) 0.4 (0.0-0.8) # Baso # (Auto) 0.1 (0.0-0.2) # PT (8.7-11.1) INR (0.89-1.13) D-Dimer, Quantitative 784 H (100-400) ng/mL Sodium (135-145) mmol/L Potassium (3.5-5.3) mmol/L Chloride (100-110) mmol/L Carbon Dioxide (21-32) mmol/L BUN (7-18) mg/dL Creatinine (0.55-1.02) mg/dL Est Cr Clr Drug Dosing Estimated GFR (MDRD) (>60) BUN/Creatinine Ratio (9-20) Glucose (80-116) mg/dL POC Glucose 104 D (80-116) mg/dL Calcium (8.6-10.2) mg/dL Total Bilirubin (0.1-1.3) mg/dL AST (5-25) IU/L ALT (12-36) U/L Alkaline Phosphatase (56-112) IU/L Troponin I (<0.017-0.056) ng/mL Total Protein (6.0-8.0) g/dL Albumin (3.2-4.6) g/dL Globulin g/dL Albumin/Globulin Ratio Urine Color (YELLOW) Urine Appearance (CLEAR) Urine pH (5.0-6.5) Ur Specific Peyton (1.010-1.025) Urine Protein (NEGATIVE) mg/dL Urine Glucose (UA) (NEGATIVE) mg/dL Urine Ketones (NEGATIVE) mg/dL Urine Occult Blood (NEGATIVE) Urine Nitrite (NEGATIVE) Urine Bilirubin (NEGATIVE) Urine Urobilinogen (NEGATIVE) mg/dL Ur Leukocyte Esterase (NEGATIVE) Urine RBC (0) Urine WBC (0) Ur Squamous Epith Cells (NS,R,O) Urine Bacteria (NS) Digoxin (0.8-2.0) ng/mL 03/29/18 03/29/18 03/29/18 Range/Units 12:45 12:45 12:45 WBC (4.5-12.0) X10-3/uL RBC (3.23-5.20) x10(6)uL Hgb (11.5-15.5) g/dL Hct (30.0-51.3) % MCV (80-96) fL MCH (27.7-33.6) pg MCHC (32.2-35.4) g/dL RDW (11.5-15.5) % Plt Count (125-369) X10(3)uL MPV (7.4-10.4) fL Neut % (Auto) (46-82) % Lymph % (Auto) (13-37) % Aiken % (Auto) (4-12) % Eos % (Auto) (1.0-5.0) % Baso % (Auto) (0-2) % Neut # (Auto) (1.6-8.3) # Lymph # (Auto) (0.6-5.0) # Aiken # (Auto) (0.0-1.3) # Eos # (Auto) (0.0-0.8) # Baso # (Auto) (0.0-0.2) # PT 19.0 H (8.7-11.1) INR 1.86 H (0.89-1.13) D-Dimer, Quantitative (100-400) ng/mL Sodium 140 (135-145) mmol/L Potassium 4.1 (3.5-5.3) mmol/L Chloride 101 (100-110) mmol/L Carbon Dioxide 32 (21-32) mmol/L BUN 23 H (7-18) mg/dL Creatinine 1.3 H (0.55-1.02) mg/dL Est Cr Clr Drug Dosing TNP Estimated GFR (MDRD) 40 L (>60) BUN/Creatinine Ratio 17.7 (9-20) Glucose 88 (80-116) mg/dL POC Glucose (80-116) mg/dL Calcium 8.4 L (8.6-10.2) mg/dL Total Bilirubin 1.1 (0.1-1.3) mg/dL AST 22 D (5-25) IU/L ALT 9 L D (12-36) U/L Alkaline Phosphatase 152 H (56-112) IU/L Troponin I < 0.017 L (<0.017-0.056) ng/mL Total Protein 7.2 (6.0-8.0) g/dL Albumin 3.0 L (3.2-4.6) g/dL Globulin 4.2 g/dL Albumin/Globulin Ratio 0.7 Urine Color (YELLOW) Urine Appearance (CLEAR) Urine pH (5.0-6.5) Ur Specific Peyton (1.010-1.025) Urine Protein (NEGATIVE) mg/dL Urine Glucose (UA) (NEGATIVE) mg/dL Urine Ketones (NEGATIVE) mg/dL Urine Occult Blood (NEGATIVE) Urine Nitrite (NEGATIVE) Urine Bilirubin (NEGATIVE) Urine Urobilinogen (NEGATIVE) mg/dL Ur Leukocyte Esterase (NEGATIVE) Urine RBC (0) Urine WBC (0) Ur Squamous Epith Cells (NS,R,O) Urine Bacteria (NS) Digoxin (0.8-2.0) ng/mL 03/29/18 03/29/18 03/29/18 Range/Units 12:45 14:05 14:35 WBC (4.5-12.0) X10-3/uL RBC (3.23-5.20) x10(6)uL Hgb (11.5-15.5) g/dL Hct (30.0-51.3) % MCV (80-96) fL MCH (27.7-33.6) pg MCHC (32.2-35.4) g/dL RDW (11.5-15.5) % Plt Count (125-369) X10(3)uL MPV (7.4-10.4) fL Neut % (Auto) (46-82) % Lymph % (Auto) (13-37) % Aiken % (Auto) (4-12) % Eos % (Auto) (1.0-5.0) % Baso % (Auto) (0-2) % Neut # (Auto) (1.6-8.3) # Lymph # (Auto) (0.6-5.0) # Aiken # (Auto) (0.0-1.3) # Eos # (Auto) (0.0-0.8) # Baso # (Auto) (0.0-0.2) # PT (8.7-11.1) INR (0.89-1.13) D-Dimer, Quantitative (100-400) ng/mL Sodium (135-145) mmol/L Potassium (3.5-5.3) mmol/L Chloride (100-110) mmol/L Carbon Dioxide (21-32) mmol/L BUN (7-18) mg/dL Creatinine (0.55-1.02) mg/dL Est Cr Clr Drug Dosing Estimated GFR (MDRD) (>60) BUN/Creatinine Ratio (9-20) Glucose (80-116) mg/dL POC Glucose (80-116) mg/dL Calcium (8.6-10.2) mg/dL Total Bilirubin (0.1-1.3) mg/dL AST (5-25) IU/L ALT (12-36) U/L Alkaline Phosphatase (56-112) IU/L Troponin I (<0.017-0.056) ng/mL Total Protein (6.0-8.0) g/dL Albumin (3.2-4.6) g/dL Globulin g/dL Albumin/Globulin Ratio Urine Color Yellow (YELLOW) Urine Appearance Clear (CLEAR) Urine pH 5.0 (5.0-6.5) Ur Specific Peyton 1.020 (1.010-1.025) Urine Protein Negative (NEGATIVE) mg/dL Urine Glucose (UA) Normal (NEGATIVE) mg/dL Urine Ketones Negative (NEGATIVE) mg/dL Urine Occult Blood Negative (NEGATIVE) Urine Nitrite Negative (NEGATIVE) Urine Bilirubin Negative (NEGATIVE) Urine Urobilinogen Normal (NEGATIVE) mg/dL Ur Leukocyte Esterase Negative (NEGATIVE) Urine RBC 0-5 (0) Urine WBC 0-5 (0) Ur Squamous Epith Cells Occasional (NS,R,O) Urine Bacteria Few H (NS) Digoxin 2.8 H* 3.0 H* (0.8-2.0) ng/mL 03/29/18 03/29/18 Range/Units 15:00 15:53 WBC (4.5-12.0) X10-3/uL RBC (3.23-5.20) x10(6)uL Hgb (11.5-15.5) g/dL Hct (30.0-51.3) % MCV (80-96) fL MCH (27.7-33.6) pg MCHC (32.2-35.4) g/dL RDW (11.5-15.5) % Plt Count (125-369) X10(3)uL MPV (7.4-10.4) fL Neut % (Auto) (46-82) % Lymph % (Auto) (13-37) % Aiken % (Auto) (4-12) % Eos % (Auto) (1.0-5.0) % Baso % (Auto) (0-2) % Neut # (Auto) (1.6-8.3) # Lymph # (Auto) (0.6-5.0) # Aiken # (Auto) (0.0-1.3) # Eos # (Auto) (0.0-0.8) # Baso # (Auto) (0.0-0.2) # PT (8.7-11.1) INR (0.89-1.13) D-Dimer, Quantitative (100-400) ng/mL Sodium (135-145) mmol/L Potassium (3.5-5.3) mmol/L Chloride (100-110) mmol/L Carbon Dioxide (21-32) mmol/L BUN (7-18) mg/dL Creatinine (0.55-1.02) mg/dL Est Cr Clr Drug Dosing Estimated GFR (MDRD) (>60) BUN/Creatinine Ratio (9-20) Glucose (80-116) mg/dL POC Glucose 65 L 72 L (80-116) mg/dL Calcium (8.6-10.2) mg/dL Total Bilirubin (0.1-1.3) mg/dL AST (5-25) IU/L ALT (12-36) U/L Alkaline Phosphatase (56-112) IU/L Troponin I (<0.017-0.056) ng/mL Total Protein (6.0-8.0) g/dL Albumin (3.2-4.6) g/dL Globulin g/dL Albumin/Globulin Ratio Urine Color (YELLOW) Urine Appearance (CLEAR) Urine pH (5.0-6.5) Ur Specific Peyton (1.010-1.025) Urine Protein (NEGATIVE) mg/dL Urine Glucose (UA) (NEGATIVE) mg/dL Urine Ketones (NEGATIVE) mg/dL Urine Occult Blood (NEGATIVE) Urine Nitrite (NEGATIVE) Urine Bilirubin (NEGATIVE) Urine Urobilinogen (NEGATIVE) mg/dL Ur Leukocyte Esterase (NEGATIVE) Urine RBC (0) Urine WBC (0) Ur Squamous Epith Cells (NS,R,O) Urine Bacteria (NS) Digoxin (0.8-2.0) ng/mL Meds: Medications Generic Name Dose Route Start Last Admin Trade Name Freq PRN Reason Stop Dose Admin Dextrose/Lactated Ringer's 1,000 mls @ 150 mls/hr 03/29/18 15:15 03/29/18 16: 05 Dextrose 5%-Lactated Ringers IV 500 mls/hr ASDIRECTED SHEA Infusion Sodium Chloride 10 ml 03/29/18 12:33 Saline Flush FLUSH ASDIRECTED PRN Keep Vein Open Discontinued Medications Generic Name Dose Route Start Last Admin Trade Name Freq PRN Reason Stop Dose Admin Gadoteridol 20 ml 03/29/18 15:30 03/29/18 15:48 Prohance IV 15 ml . DIRECTED SHEA Administration Sodium Chloride 1,000 mls @ 150 mls/hr 03/29/18 15:00 Normal Saline IV ASDIRECTED SHEA Departure - Departure Time of Disposition: 17:20 Disposition: Home, Self-Care 01 Condition: Fair Clinical Impression: Lethargy Maxillary sinusitis Qualifiers: Chronicity: acute Recurrence: not specified as recurrent Qualified Code(s): J01.00 - Acute maxillary sinusitis, unspecified - Discharge Information Referrals: Nate Garcias MD [Primary Care Provider] - Forms: ED Department Discharge - Problem List & Annotations (1) Lethargy SNOMED Code(s): 598841845 Code(s): R53.83 - OTHER FATIGUE Status: Acute Current Visit: Yes Annotation/Comment:: Lethargy NOS, clinically improved without intervention. Observation suggested. (2) Maxillary sinusitis SNOMED Code(s): 72807140 Code(s): J32.0 - CHRONIC MAXILLARY SINUSITIS Status: Acute Current Visit : Yes Annotation/Comment:: I dispensed Augmentin CR 875 mg bid for a week. Qualifiers: Chronicity: acute Recurrence: not specified as recurrent Qualified Code(s ): J01.00 - Acute maxillary sinusitis, unspecified - Problem List Review Problem List Initiated/Reviewed/Updated: Yes - My Orders Last 24 Hours: My Active Orders 03/29/18 12:33 Sodium Chloride 0.9% [Saline Flush] 10 ml FLUSH ASDIRECTED PRN Peripheral IV Insertion Adult [OM.PC] Routine EKG 12 Lead [EK] Routine 03/29/18 14:35 UA W/MICROSCOPIC [URIN] Stat 03/29/18 14:40 Insert Urinary Catheter [OM.PC] Q24H 03/29/18 14:52 Brain w wo Cont [MR] Stat 03/29/18 14:54 Urinary Catheter Assessment [RC] ASDIRECTED 03/29/18 15:15 Dextrose 5%-Lactated Ringers 1,000 ml IV ASDIRECTED - Assessment/Plan Last 24 Hours: My Active Orders 03/29/18 12:33 Sodium Chloride 0.9% [Saline Flush] 10 ml FLUSH ASDIRECTED PRN Peripheral IV Insertion Adult [OM.PC] Routine EKG 12 Lead [EK] Routine 03/29/18 14:35 UA W/MICROSCOPIC [URIN] Stat 03/29/18 14:40 Insert Urinary Catheter [OM.PC] Q24H 03/29/18 14:52 Brain w wo Cont [MR] Stat 03/29/18 14:54 Urinary Catheter Assessment [RC] ASDIRECTED 03/29/18 15:15 Dextrose 5%-Lactated Ringers 1,000 ml IV ASDIRECTED Plan: Follow up with PCP.
--- NOTE | 2018-03-29 14:46 | CR ---
INDICATION: Confusion. CHEST: AP portable upright view of the chest 03/29/2018 was compared with 11/29 and 03/19/2014, revealing garment artifact on the upper chest and clavicular area. A complete shoulder arthroplasty is noted on the left and on the right as well. The heart is enlarged, as previously. The aorta is tortuous. Overlying EKG leads are noted. A definite active infiltrate or effusion was not identified. IMPRESSION: No acute process. MTDD
--- NOTE | 2018-03-29 14:55 | CT ---
INDICATION: Confusional state. CT HEAD WITHOUT CONTRAST: Serial contiguous 2.5 and 5 mm sections were obtained through the brain without contrast 03/29/2018 - no comparisons. Total exam DLP = 950.31 mGy-cm. Thickening of the lining and frothy material, as well as suggestion of an air fluid level in the right maxillary antrum, suggest the possibility of acute sinusitis. This should be correlated clinically. Paranasal sinuses and mastoid air cells were otherwise well-aerated. Mild degenerative changes to moderate degenerative changes are noted at the atlantoodontoid joint. The cranium appears to be intact. Calcifications are noted in the internal carotid arteries. No shift of midline structures or definite ventricular abnormalities were identified. The ventricles are slightly generous in size, which may be on the basis of patients age and possibly a mild degree of central atrophy. Cortical sulci appear to be normal. No definite abnormal areas of density were identified. No bleeding site or hematoma was seen. The orbits had a normal appearance. Minimal calcification is noted in the basal ganglia, most likely not of clinically significance. IMPRESSION: 1. No definite acute intracranial abnormality. 2. Mild central atrophy. 3. Possible acute right maxillary sinusitis. 4. Internal carotid artery calcifications noted, compatible with cerebrovascular disease. Report was called to Dr. Cervantes at 1315 hours on 03/29/2018. [facility]
[2018-03-29] MEDS ORDERED: Sodium Chloride 0.9% 1,000 ML IV SCH (15:00)
[2018-03-29] MEDS ORDERED: Dextrose 5%-Lactated Ringers 1,000 ML IV SCH (15:15)
[2018-03-29] MEDS ORDERED: Gadoteridol 279.3 MG/ML 20 ML SDV IV SCH (15:30)
== END 2018-03-29 18:10 | disposition home or self-care (01) ==
LOC: FB.ED 12:10
DX: J01.00 Acute maxillary sinusitis, unspecified (principal); R53.83 Other fatigue; E11.9 Type 2 diabetes mellitus without complications; E78.00 Pure hypercholesterolemia, unspecified; Z88.8 Allergy status to other drugs, medicaments and biological substances; Z79.84 Long term (current) use of oral hypoglycemic drugs; Z79.899 Other long term (current) drug therapy
CPT/HCPCS: 36415; 51701; 70450; 70553; 71045; 80053; 80162; 81001; 82962; 84484; 85025; 85379; 85610; 93005; 96360; 96361; 99284; J7042